=== PATIENT | male | born 1955 | race Caucasian/White ===

== ENCOUNTER 2021-07-25 15:10 | Emergency (ER) | payer MEDICAID, SELFPAY ==
[2021-07-25 15:15] VITALS: BP 134/85; PULSE 86; RESP 18; TEMP 36.9; O2SAT 97; BMI 19.8
--- NOTE | 2021-07-25 16:24 | HMH.EDGENADL ---
ED Disposition Clinical Impression: Fall on stairs Qualifiers: Encounter type: initial encounter Qualified Code(s): W10.9XXA - Fall (on) (from) unspecified stairs and steps, initial encounter Back contusion Qualifiers: Encounter type: initial encounter Laterality: unspecified laterality Qualified Code(s): S20.229A - Contusion of unspecified back wall of thorax, initial encounter Disposition: Home, Self-Care Condition on Discharge: Good Instructions: How to Prevent Falls Additional Instructions: Follow-up with primary care provider for any further complaints or concerns. Referrals: Provider,Referral, [Primary Care Provider] - - Critical Care Critical Care Time: No Attestation: On 07/25/21, the high probability of a clinically significant, sudden or life threatening deterioration of the following system(s) required my full and direct attention, intervention and personal management. The time I documented below is in addition to time spent performing reported procedures but includes the following listed in this critical care notation. Medical Decision Making - Salo Inquiry Pt receiving controlled substance: No Vital Signs: 07/25/21 15:15 Temperature 98.4 F Temperature Source Oral Pulse Rate [Left Radial] 86 Respiratory Rate 18 Blood Pressure [Right Arm] 134/85 Blood Pressure Mean [Right Arm] 101 02 Sat by Pulse Oximetry 97 Medical Decision Narrative: Patient declines any further care, wants to be discharged. He does not appear to have any significant injuries and I feel he can be discharged back to [facility]. General Adult HPI - General Chief complaint: Fall Stated complaint: Fall Time Seen by Provider: 07/25/21 16:24 Mode of Arrival: EMS Limitations: No Limitations Description of Symptoms (Recalled from ER Triage Doc. by RN): pt to ed per ems. ems states pt tripped down 2 steps and fell on his bottom. pt has no complaints on arrival. pt states nothing is wrong with me, they made me come. - History of Present Illness HPI narrative: Patient brought in by ambulance from [facility]. He says that he fell down the last couple of steps of some stairs and landed on his back. 911 call reported that he had severe back pain, but he says he feels fine. He had no complaints on EMS arrival. He says his back was a little sore afterwards but currently he says he is having no pain and he has no complaints and does not want anything done. Denies hitting his head or loss of consciousness. Denies neck pain. No abdominal pain or vomiting. He has been ambulatory in the emergency department without difficulty. - Related Data Home Medications Medication Instructions Recorded Confirmed Lactobacillus acidoph-L.bulgaricus 1 tab PO DAILY tab 01/18/18 12/19/19 1 million cell chewable tablet No Known Home Medications 01/18/18 12/19/19 carvedilol 3.125 mg tablet 3.125 mg PO BID 01/18/18 12/19/19 cyanocobalamin (vitamin B-12) 1,000 mcg PO DAILY 01/18/18 12/19/19 1,000 mcg capsule famotidine 20 mg tablet 20 mg PO DAILY 01/18/18 12/19/19 folic acid 1 mg tablet 1 mg PO DAILY 01/18/18 12/19/19 ibuprofen 600 mg tablet 600 mg PO QID PRN 01/18/18 12/19/19 levetiracetam 750 mg tablet 750 mg PO BID 01/18/18 12/19/19 lisinopril 20 mg tablet 20 mg PO DAILY 01/18/18 12/19/19 melatonin 5 mg capsule 5 mg PO cap 01/18/18 12/19/19 oxcarbazepine 600 mg tablet 600 mg PO BID 01/18/18 12/19/19 pyridoxine (vitamin B6) 50 mg 50 mg PO DAILY 01/18/18 12/19/19 tablet sennosides 8.6 mg tablet 8.6 mg PO BID PRN 01/18/18 12/19/19 sertraline 50 mg tablet 50 mg PO DAILY 01/18/18 12/19/19 trazodone 50 mg tablet 50 mg PO DAILY 01/18/18 12/19/19 Allergies Allergy/AdvReac Type Severity Reaction Status Date / Time No Known Allergies Allergy Verified 12/19/19 10:14 [facility] History - Hepatitis A Screen Attestation statement:: This patient has been screened for Hepatitis A risk factors. I have reviewed the patie
--- NOTE | 2021-07-25 16:36 | PC.NURSE ---
attempted to call quang lazo x5 for discharge
--- NOTE | 2021-07-25 16:47 | PC.NURSE ---
pt sitting in hallway in recliner
[2021-07-25 17:41] VITALS: BP 131/82; PULSE 84; RESP 17; TEMP 36.9; O2SAT 98
== END 2021-07-25 17:43 | disposition home or self-care (01) ==
PROVIDERS: Emergency Provider Emergency Medicine
DX: S20.229A Contusion of unspecified back wall of thorax, initial encounter (principal); W10.9XXA Fall (on) (from) unspecified stairs and steps, initial encounter
CPT/HCPCS: 99282

== ENCOUNTER 2021-08-19 15:08 | Inpatient (IN) | payer MEDICAID, SELFPAY ==
[2021-08-19 15:09] VITALS: BP 157/76; PULSE 84; RESP 16; TEMP 36.6; O2SAT 98; BMI 20.1
--- NOTE | 2021-08-19 15:13 | XR_ITS ---
FINAL REPORT CLINICAL HISTORY: weakness, altered mental status, fall FINDINGS: The heart size is normal. The mediastinum is normal. There is no focal infiltrate or edema. There are no pleural effusions. There is no pneumothorax. There is no osseous abnormality. IMPRESSION: No acute cardiopulmonary process Reviewed, Interpreted and Dictated by Donavan Marroquin III, MD Transcribed by Tacos Mancilla Authenticated and [facility]
--- NOTE | 2021-08-19 15:22 | HMH.EDGENADL ---
ED Disposition Clinical Impression: Metabolic encephalopathy, Failure to thrive Disposition: Admitted As Inpatient Condition on Discharge: Good - Critical Care Critical Care Time: No Attestation: On 08/19/21, the high probability of a clinically significant, sudden or life threatening deterioration of the following system(s) required my full and direct attention, intervention and personal management. The time I documented below is in addition to time spent performing reported procedures but includes the following listed in this critical care notation. Medical Decision Making - Medical Records Medical records reviewed: Yes: I reviewed the patient's medical records. - Salo Inquiry Pt receiving controlled substance: No Vital Signs: 08/19/21 15:09 08/19/21 15:30 Temperature 98 F Temperature Source Oral Pulse Rate 79 Pulse Rate [Radial] 84 Respiratory Rate 16 19 Blood Pressure 130/76 Blood Pressure [Right Arm] 157/76 H Blood Pressure Mean 95 Blood Pressure Mean [Right Arm] 103 Blood Pressure Position [Right Arm] Sitting 02 Sat by Pulse Oximetry 98 97 Oxygen Delivery Method Room Air - Lab Data Lab results reviewed: Yes: I reviewed the patient's lab results. Lab Results 08/19/21 15:05: WBC 18.7 H, RBC 4.70, Hgb 15.1, Hct 43.8, MCV 93.2, MCH 32.1 H, MCHC 34.5, RDW 15.3, Plt Count 134 L, MPV 9.3, Neut % (Auto) 89.5 H, Lymph % (Auto) 3.2 L, Harding % (Auto) 5.6, Eos % (Auto) 1.3, Baso % (Auto) 0.4, Neut # (Auto) 16.8 H, Lymph # (Auto) 0.6 L, Harding # (Auto) 1.1 H, Eos # (Auto) 0.3, Baso # (Auto) 0.1, Total Counted 100, Neutrophils % (Manual) 89 H, Lymphocytes % (Manual) 5 L, Monocytes % (Manual) 6, Platelet Estimate Moderate decrease, Ovalocytes 2+ 08/19/21 15:05: Sodium 132 L, Potassium 3.5, Chloride 102, Carbon Dioxide 24, Anion Gap 9.5, BUN 16, Creatinine 0.90, Estimated Creat Clear 76, Estimated GFR 85, Est GFR ( Amer) 103, Glucose 108 H, Calcium 9.0, Total Bilirubin 0.8, AST 31, ALT 15, Alkaline Phosphatase 100, Total Creatine Kinase 455 H, Troponin I 0.04 H, Total Protein 7.2, Albumin 4.1, Globulin 3.1, Albumin/Globulin Ratio 1.3 08/19/21 15:05: Magnesium 1.6 08/19/21 16:00: SARS-CoV-2 (PCR) Not detected, Influenza A Untype (PCR) Not detected, Influenza Type B (PCR) Not detected Result diagrams: 08/19/21 15:05 08/19/21 15:05 Orders (Tests/Meds): ED MEDICATIONS Discontinued Medications Generic Name Dose Route Start Last Admin Trade Name Freq PRN Reason Stop Dose Admin Haloperidol Lactate 5 mg 08/19/21 17:43 08/19/21 17:47 Haloperidol Lactate 5 Mg/Ml Vial IM 08/19/21 17:44 5 mg ONCE ONE Administration - ECG Data Tracing #1 I reviewed this ECG and interpreted as documented below: NSR @ 76 with occaisoinal PAC's normal axis AK 76 QRS 94 QTc [address]/T wave changes General Adult HPI - General Chief complaint: Fall Stated complaint: weakness Time Seen by Provider: 08/19/21 15:23 Mode of Arrival: EMS Source of Information: Patient, EMS Limitations: Altered Mental Status Description of Symptoms (Recalled from ER Triage Doc. by RN): to ed per squad pt resident dong sent to ed due to hx of multiple falls, generalized weakness, weightloss decline in ability to care for self progressively getting worse over the last few months. pt disheveled, incontinent of urine, smells of urine. pt denies any c/o at present - History of Present Illness HPI narrative: 65 yo/M, history somewhat limited. From [facility] per EMS, has had functional decline, weight loss, inability to care for self, has been incontinent of feces and urine, had significant recent weight loss. Pt denies fever, denies any pain, diarrhea, shortness of breath or other symptoms. - Related Data Home Medications Medication Instructions Recorded Confirmed Lactobacillus acidoph-L.bulgaricus 1 tab PO DAILY tab 01/18/18 12/19/19 1 million cell chewable tablet No Known Home Medicati
--- NOTE | 2021-08-19 15:25 | ECG_ITS ---
APPROVED REPORT Exam: Resting ECG HR:76 bpm ECG Measurements Heart Rate 76 AXES HI 165 P 78 QRSd 94 QRS 80 QT 385 T 37 QTc 416 Conclusion SINUS RHYTHM WITH OCCASIONAL SUPRAVENTRICULAR PREMATURE COMPLEXES LEFT VENTRICULAR HYPERTROPHY AND ST-T CHANGE [VOLTAGE CRITERIA PLUS ST/T ABNORMALITY] ABNORMAL ECG UNCONFIRMED REPORT Electronically signed by : Ford Latif MD 08/20/2021 15:37:11
[2021-08-19 15:30] VITALS: BP 130/76; PULSE 79; RESP 19; O2SAT 97
--- NOTE | 2021-08-19 15:37 | CT_ITS ---
FINAL REPORT CLINICAL HISTORY: altered mental status, fall FINDINGS: Axial images of the head were obtained without contrast. Coronal reformatted images were also obtained. This study was performed with techniques to keep radiation doses as low as reasonably achievable (ALARA). Individualized dose reduction techniques using automated exposure control or adjustment of mA and/or kV according to the patient's size were employed. Postoperative change at the right base the brain causes streak artifact. There is age-appropriate atrophy. Periventricular low-attenuation areas are seen consistent with mild chronic ischemic changes. There are areas of bilateral encephalomalacia. There is no evidence of intracranial hemorrhage or mass. There is mild ventriculomegaly. There is no evidence of acute infarct. There is no evidence of shift of the midline structures. Postoperative changes are seen from right craniotomy. IMPRESSION: Postoperative changes. Atrophy and mild periventricular chronic ischemic changes. No acute intracranial abnormality identified. Reviewed, Interpreted and Dictated by Donavan Marroquin III, MD Transcribed by Tacos Mancilla Authenticated and [facility]
[2021-08-19 15:51] LABS: Basophils # 0.1 K/mm3 (0-0.2); Basophils % 0.4 % (0.1-2.0); Chloride 102 mmol/L (98-107); Eosinophils # 0.3 K/mm3 (0.0-0.4); Eosinophils % 1.3 % (0.1-12.0); Hematocrit 43.8 % (42.0-52.0); Hemoglobin 15.1 g/dL (14.1-18.0); Lymphocytes # 0.6 K/mm3 (0.7-4.5); Lymphocytes % 3.2 % (10-50); Mean Corpuscular HGB Conc 34.5 g/dL (31.8-35.4); Mean Corpuscular Hemoglobin 32.1 pg (27.0-31.2); Mean Corpuscular Volume 93.2 fl (80-94); Mean Platelet Volume 9.3 fl (7.4-10.4); Monocytes # 1.1 K/mm3 (0.1-1.0); Monocytes % 5.6 % (1.7-9.3); Neutrophils # 16.8 K/mm3 (1.8-7.8); Neutrophils % 89.5 % (37.0-80.0); Platelet Count 134 K/mm3 (142-424); Potassium 3.5 mmoL/L (3.5-5.1); Red Cell Distribution Width 15.3 % (11.5-17.5); Sodium 132 mmol/L (136-145); White Blood Count 18.7 K/mm3 (4.8-10.8)
[2021-08-19 15:53] LABS: Alanine Aminotransferase 15 U/L (12-78); Aspartate Amino Transferase 31 U/L (17-59); Blood Urea Nitrogen 16 mg/dl (9-20); Creatinine Clearance Estimated 76 mL/min (50-200); Estimated Glomerular Filt Rate 85 ml/min (>60); GFR (African American) 103 ML/MIN (>60); Magnesium 1.6 mg/dl (1.6-2.3)
[2021-08-19 15:54] LABS: Albumin Level 4.1 g/dl (3.5-5.0); Albumin/Globulin Ratio 1.3 (1.1-1.8); Alkaline Phosphatase 100 U/L (38-126); Anion Gap 9.5 mEq/L (5-15); Bilirubin,Total 0.8 mg/dl (0.2-1.3); Carbon Dioxide 24 mmol/L (22.0-30.0); Creatine Kinase 455 U/L (55-170); Globulin 3.1 g/dL (1.3-3.2); Glucose 108 mg/dl (74-100); Total Protein,Serum 7.2 g/dl (6.3-8.2)
[2021-08-19 15:56] LABS: MANUAL DIFFERENTIAL MANUAL DIFFERENTIAL (MANUAL DIFF)
[2021-08-19 16:06] LABS: Troponin I 0.04 ng/ml (0.00-0.034)
[2021-08-19 16:28] LABS: Coronavirus 19, PCR Not Detected (NotDetected); Influenza A, PCR Not Detected (NotDetected); Influenza B, PCR Not Detected (NotDetected)
[2021-08-19 16:32] LABS: Lymphocytes % 5 % (10-50); Monocytes % 6 % (2-9); Neutrophils % 89 % (42-76); Total Cells Counted 100
[2021-08-19 16:34] LABS: Ovalocytes 2+; Platelet Estimate Moderate Decrease
--- NOTE | 2021-08-19 16:43 | PC.NURSE ---
Called Dietary for a regular food tray to ED Room 9; spoke to Amelia
--- NOTE | 2021-08-19 17:00 | PC.NURSE ---
diet tray given
--- NOTE | 2021-08-19 17:04 | PC.NURSE ---
pt sittting up on side of the bed eating his supper tray at this time
--- NOTE | 2021-08-19 17:23 | PC.NURSE ---
Spoke with Coby in Care management regarding patient admission.
--- NOTE | 2021-08-19 17:30 | PC.NURSE ---
pt up out of bed pt with unsteady gait
--- NOTE | 2021-08-19 17:48 | PC.NURSE ---
PT HAS BECOME VERY COMBATIVE AT TIMES WILL NOT STAY IN BED URINATING ALL OVER THE FLOOR . HALDOL 5 MG IM GIVEN CALLED HOUSE REQUESTING SOMEONE TO COME SIT ONE ON ONE
--- NOTE | 2021-08-19 17:57 | PC.NURSE ---
report called to floor
--- NOTE | 2021-08-19 18:34 | PC.NURSE ---
Pt arrived to the floor at this time
[2021-08-19 18:50] VITALS: BP 124/74; PULSE 78; RESP 16; TEMP 36.6; O2SAT 98
[2021-08-19 18:51] VITALS: BP 148/85; PULSE 87; RESP 16; TEMP 36.4; O2SAT 99; BMI 14.2
[2021-08-19 18:58] LABS: Microscopic, Urine URINE MICROSCOPIC (MICROSCOPIC)
[2021-08-19 20:00] VITALS: BP 144/80; PULSE 82; RESP 16; TEMP 36.9; O2SAT 96
[2021-08-19 20:11] LABS: Bilirubin,Urine Negative (Negative); Blood, Urine 2+ (Negative); Color,Urine YELLOW (Yellow); Glucose,Urine (UA) Negative (Negative); Ketones,Urine Negative (Negative); Leukocyte Esterase,Urine 2+ (Negative); Nitrate,Urine POSITIVE (Negative); Protein,Urine 2+ (Negative); Urobilinogen,Urine 0.2 EU/dl (0.2)
[2021-08-19 20:14] LABS: Appearance,Urine Slightly Cloudy (Clear)
[2021-08-19 20:41] LABS: Bacteria,Urine 2+ /lpf; Squamous Epithelial Cell,Urine Occasional #/hpf (0-5); WBC,Urine 20-50 #/hpf (0-3)
[2021-08-20] VITALS: BP 83/56; PULSE 74; RESP 16; TEMP 37; O2SAT 95
--- NOTE | 2021-08-20 00:07 | PC.NURSE ---
Blood pressure was 83/56 with a map of 67 the nurse was notified
[2021-08-20 00:17] VITALS: BP 90/52
--- NOTE | 2021-08-20 01:05 | PC.NURSE ---
patient BP systolic dropped > 40; provider validation manager notified and gave v.o. for LR 1L Bolus x 1 and LR 125mg/hr for maintenance. IV started in DENISE 20g.
[2021-08-20 04:00] VITALS: BP 137/76; PULSE 65; RESP 18; TEMP 36.8; O2SAT 92
[2021-08-20 05:00] VITALS: BMI 15.4
[2021-08-20 06:50] LABS: Basophils # 0.1 K/mm3 (0-0.2); Basophils % 0.3 % (0.1-2.0); Eosinophils # 0.3 K/mm3 (0.0-0.4); Eosinophils % 1.3 % (0.1-12.0); Hematocrit 40.3 % (42.0-52.0); Lymphocytes # 0.6 K/mm3 (0.7-4.5); Mean Corpuscular HGB Conc 34.7 g/dL (31.8-35.4); Mean Corpuscular Hemoglobin 31.8 pg (27.0-31.2); Mean Corpuscular Volume 91.7 fl (80-94); Monocytes # 0.9 K/mm3 (0.1-1.0); Monocytes % 4.8 % (1.7-9.3); Neutrophils # 17.8 K/mm3 (1.8-7.8); Neutrophils % 90.6 % (37.0-80.0); Platelet Count 116 K/mm3 (142-424); Red Cell Distribution Width 15.4 % (11.5-17.5); White Blood Count 19.7 K/mm3 (4.8-10.8)
[2021-08-20 07:00] LABS: MANUAL DIFFERENTIAL MANUAL DIFFERENTIAL (MANUAL DIFF)
[2021-08-20 07:01] LABS: Chloride 100 mmol/L (98-107); Potassium 3.5 mmoL/L (3.5-5.1); Sodium 129 mmol/L (136-145)
[2021-08-20 07:04] LABS: Anion Gap 10.5 mEq/L (5-15); Blood Urea Nitrogen 17 mg/dl (9-20); Calcium 8.6 mg/dl (8.4-10.2); Carbon Dioxide 22 mmol/L (22.0-30.0); Creatinine Clearance Estimated 53 mL/min (50-200); Estimated Glomerular Filt Rate 114 ml/min (>60); GFR (African American) 138 ML/MIN (>60); Glucose 104 mg/dl (74-100)
--- NOTE | 2021-08-20 07:09 | P.CONPHA_ITS ---
[facility] Pharmacy VTE Monitoring - Patient Demographics Admission date: 08/19/21 Report Date: 08/20/21 Time: 07:09 Allergies/Adverse Reactions: Patient Allergies No Known Allergies Allergy (Verified 12/19/19 10:14) Height: 1.8 m Weight: 49.952 kg Patient Problems: Current Active Problems Metabolic encephalopathy (Acute) Failure to thrive (Acute) - VTE Risk Labs: VTE Related Lab Results Hgb 14.0 g/dL (14.1-18.0) L 08/20/21 06:30 Hct 40.3 % (42.0-52.0) L 08/20/21 06:30 Plt Count 116 K/mm3 (142-424) L 08/20/21 06:30 BUN 17 mg/dl (9-20) 08/20/21 06:30 Creatinine 0.70 mg/dl (0.66-1.25) D 08/20/21 06:30 Estimated Creat Clear 53 mL/min (50-200) 08/20/21 06:30 - Prophylaxis VTE Prophylaxis Ordered?: Yes Types of VTE Prophylaxis: TEDS Knee High Location of Applied Device: Bilateral Lower Extremeties
[2021-08-20 07:30] LABS: Lymphocytes % 4 % (10-50); Monocytes % 2 % (2-9); Neutrophils % 94 % (42-76); RBC Morphology Normal; Total Cells Counted 100
[2021-08-20 07:31] LABS: Platelet Estimate Slight Decrease
--- NOTE | 2021-08-20 07:34 | HMH.PHAINT ---
verified home medication list using MAR from [facility]
[2021-08-20 07:45] VITALS: BP 152/73; PULSE 82; RESP 16; TEMP 36.6; O2SAT 99
--- NOTE | 2021-08-20 09:58 | HMH.HP ---
*Admission Date: 08/19/21 *Chief complaint: Weakness *History of present illness: 65-year-old male patient to [facility] emergency department per EMS for generalized weakness, weight loss, decline in ability to care for self, and multiple falls over the last several months with significant weight loss. The emergency department patient was disheveled, incontinent of bowel and bladder and denied fever/chills/body aches, nausea/vomiting/diarrhea, or any pain or other symptoms UA revealed 2+ leukocytes, 2+ bacteria and positive nitrates Head CT revealed Postoperative changes. Atrophy and mild periventricular chronic ischemic changes. No acute intracranial abnormality identified. Chest x-ray no acute findings [facility] History I have reviewed the patient's past medical history: Yes Medical History: Reports:: Aneurysm Denies:: Cancer, Diabetes Mellitus Type 1, Diabetes Mellitus Type 2, MRSA *Have you ever received a pneumonia vaccine?: Yes *Have you received a flu vaccine this season?: Yes Other Surgeries: Yes: No Previous Surgery Amputation: No Fractures: No - *Social History Smoking Status: Current every day smoker Tobacco Type: cigarettes # Packs/Day (cigarettes): 1 Alcohol Intake: never *Occupational Status:: disabled Housing: assisted living facility *Travel in the last 8 weeks: None Family Hx:: Unable to obtain Review of Systems - Review of Systems Review of systems:: unable to obtain Meds Home Medications Medication Instructions Recorded Confirmed Type Lactobacillus acidoph-L.bulgaricus 1 tab PO DAILY tab 01/18/18 08/19/21 History 1 million cell chewable tablet carvedilol 3.125 mg tablet 3.125 mg PO BID 01/18/18 08/19/21 History famotidine 20 mg tablet 20 mg PO DAILY 01/18/18 08/19/21 History folic acid 1 mg tablet 1 mg PO DAILY 01/18/18 08/19/21 History ibuprofen 600 mg tablet 600 mg PO QID PRN 01/18/18 08/19/21 History levetiracetam 750 mg tablet 750 mg PO BID 01/18/18 08/19/21 History melatonin 5 mg capsule 5 mg PO HS cap 01/18/18 08/19/21 History oxcarbazepine 600 mg tablet 600 mg PO BID 01/18/18 08/19/21 History sennosides 8.6 mg tablet 8.6 mg PO BID PRN 01/18/18 08/19/21 History trazodone 50 mg tablet 50 mg PO DAILY 01/18/18 08/19/21 History Amlodipine Besylate 1 tab PO HS 08/19/21 08/19/21 History Sertraline HCl 100 mg PO DAILY 08/20/21 08/20/21 History lisinopriL [Lisinopril] 40 mg PO DAILY 08/20/21 08/20/21 History Allergies Allergy/AdvReac Type Severity Reaction Status Date / Time No Known Allergies Allergy Verified 12/19/19 10:14 Exam Vital signs and Labs for Last 24 Hours: Temp Pulse Resp BP Pulse Ox 97.8 F 82 16 152/73 H 99 08/20/21 07:45 08/20/21 07:45 08/20/21 07:45 08/20/21 07:45 08/20/21 07:45 Laboratory Results - last 24 hr 08/19/21 15:05: WBC 18.7 H, RBC 4.70, Hgb 15.1, Hct 43.8, MCV 93.2, MCH 32.1 H, MCHC 34.5, RDW 15.3, Plt Count 134 L, MPV 9.3, Neut % (Auto) 89.5 H, Lymph % (Auto) 3.2 L, Angelina % (Auto) 5.6, Eos % (Auto) 1.3, Baso % (Auto) 0.4, Neut # (Auto) 16.8 H, Lymph # (Auto) 0.6 L, Angelina # (Auto) 1.1 H, Eos # (Auto) 0.3, Baso # (Auto) 0.1, Total Counted 100, Neutrophils % (Manual) 89 H, Lymphocytes % (Manual) 5 L, Monocytes % (Manual) 6, Platelet Estimate Moderate decrease, Ovalocytes 2+ 08/19/21 15:05: Sodium 132 L, Potassium 3.5, Chloride 102, Carbon Dioxide 24, Anion Gap 9.5, BUN 16, Creatinine 0.90, Estimated Creat Clear 76, Estimated GFR 85, Est GFR ( Amer) 103, Glucose 108 H, Calcium 9.0, Total Bilirubin 0.8, AST 31, ALT 15, Alkaline Phosphatase 100, Total Creatine Kinase 455 H, Troponin I 0.04 H, Total Protein 7.2, Albumin 4.1, Globulin 3.1, Albumin/Globulin Ratio 1.3 08/19/21 15:05: Magnesium 1.6 08/19/21 16:00: SARS-CoV-2 (PCR) Not detected, Influenza A Untype (PCR) Not detected, Influenza Type B (PCR) Not detected 08/19/21 18:51: Urine Color Yellow, Urine Appearance Slightly cloudy, Urine pH 8.0
--- NOTE | 2021-08-20 10:05 | SW/DCPLANNER ---
Addendum entered by [facility] 08/25/21 10:01: I have contacted patient's Guardian to inform her that this patient will discharge to [facility] today. Addendum entered by [facility] 08/25/21 09:51: This patient will discharge to [facility] today. Repeat COVID swab is negative. Addendum entered by [facility] 08/24/21 12:53: Janeth Reyna has stated that she can accept this patient tomorrow. Janeth has requested a COVID swab prior to discharge. I will update patient' guardian. Addendum entered by [facility] 08/24/21 10:41: Janeth painting/ [facility] and Jesica painting/ [facility] are currently reviewing patient information. Addendum entered by [facility] 08/23/21 14:46: [facility] is not able to accept this patient. I am currently waiting to hear back from: Isidro Miller and [facility]. [facility] has denied this patient and Lis painting/ [facility]anc[facility] stated that she does not have any male beds available at this time. Addendum entered by [facility] 08/23/21 12:41: [facility]/ [facility] has denied this patient at this time. Addendum entered by [facility] 12:05: [facility] patient at this time. Addendum entered by [facility] 08/23/21 11:59: Patient information has been faxed to Jesica painting/ [facility]. Addendum entered by [facility] 08/23/21 10:35: Janeth Reyna and Priyanka Mancilla are currently reviewing patient information at this time. Addendum entered by [facility] 08/20/21 10:35: I called and spoke with patient's Guardian (Bere) regarding placement. Bere is in agreement with faxing referral to facilities. I will fax patient information to: Isidro Miller, [facility], [facility] and [facility]. Lis painting/ [facility]ancilla and Jesica painting/ [facility] does not have a male bed available at this time. Original Note: This patient currently resides at [facility]. I called and spoke with Olesya at [facility]: patient has been having falls for the past month, was at [facility] on 07/25/21 for a fall, does not have any home health and placement was not initiated. Olesya did inform me that patient does have a State Guardian and will get the information to me. PT/OT has recommended placement for this patient. I will contact patient's Guardian once I receive information from Olesya.
--- NOTE | 2021-08-20 10:36 | HMH.PTEV ---
Physical Therapy Evaluation Rehab PT IP Evaluation Start: 08/20/21 09:59 Freq: ONCE Status: Active Protocol: Document 08/20/21 10:27 MARISSA (Rec: 08/20/21 10:36 MARISSA [id number]) Subjective/History History History Patient is a 65 year old male admitted to [facility] 08/19/21 secondary to failure to thrive and encephalopathy. Patient was previously living in an assisted living facility. Patient claims to be independenet with ambulation and all ADL's. Subjective Subjective Patient appeared confused upon entry. Min assist x 1 for bed mobility to achieve EOB. MIn assist for sit to stand transfer and ambulation. Patient oriented to person and birthday, but not to place. Rehab PT IP Eval Objective Appearance Patient Behavior Confused Patient Orientation Person,Place Difficulty following instructions mild Speech Pattern Delayed,Mumbled Ambulation Patient Able to Ambulate Yes Balance Ability to Arise Able, uses arms to help Sitting Balance Leans or slides in chair Standing Balance Unsteady Dynamic Sitting Balance Ability Fair Dynamic Standing Balance Ability Fair Transfers Bed Transfer Ability Minimal x 1 (25% assist) Sit to Stand Bed Transfer Ability Minimal x 1 (25% assist) ROM All Extremities PT ROM Status WFL MMT All Extremities PT MMT ABN Abnormal MMT Grade 3 Rehab PT IP prob,goals,plan Problems Date of Evaluation: 08/20/21 PT IP Problems Bed Mobility,Transfers,Gait, Balance,Self care,Safety Rehab Potential Rehab Potential Fair Plan PT Intervention Plan Bed Mobility,Transfers,Gait, Balance,Self care,Safety, Therapeutic Exercise PT Plan Frequency BID Duration LOS Discharge Goals Bed Transfer Ability Supervision/Stand by Sit to Stand Chair Transfer Ability Supervision/Stand by Ambulation Assistive Device None Ambulation Distance (feet) 50 Discharge Plan PT Discharge Plan PT suggest to discharge to SNF for continued rehab services to address concerns about safety wi
--- NOTE | 2021-08-20 10:47 | HMH.OTEV ---
OT Inpatient Evaluation Rehab OT IP Evaluation Start: 08/20/21 09:59 Freq: ONCE Status: Complete Protocol: Document 08/20/21 10:39 [facility] (Rec: 08/20/21 10:47 [facility] [id number]) Rehab OT IP Assessment Subjective History Pt oriented x 2 on arrival. Pt not oriented to place. Pt was admitted via ED on 08/19/21 due to Metabolic encephalopathy and failure to thrive. Per report, pt was living at [facility] prior to being admitted to the hospital . Pt appears to be slightly disoriented on arrival. Pt claims prior to being in the hospital he was independent with all ADLs such as dressing , feeding, and bathing. Pt also claims he did not use a walker or cane during ambulation. Subjective I'm at [facility]. Pt required mod verbal cueing for instruction and min assist to complete bed mobility and go from supine to sitting at eob. Pt was unable to don socks while sitting at eob. Pt demonstrated poor dynamic sitting balance with a posterior lean. Pt was dependent upon therapist to complete lower body dressing. Pt stood from eob with min assist. Pt engaged in functional transfer to bathroom with min assist and max verbal cues for instruction and safety during transfer. Pt attempted urination while standing. Pt required max verbal cues for appropriate positioning while trying to urinate. Pt then transferred back to bed with min assist. Pt sat down at eob with min assist. Pt completed bed mobility to go from sitting to supine with cga. Pt was left with call
[2021-08-20 13:34] VITALS: BMI 15.4
[2021-08-20 16:00] VITALS: BP 117/75; PULSE 78; RESP 16; TEMP 36.8; O2SAT 97
--- NOTE | 2021-08-20 18:50 | PC.NURSE ---
Pt has done ok this shift. pt has not required any PRN medications this shift for agitation. Seizure pads added to bed d/t pt's hx of seizures. Pt has only been oriented to himself this shift. Pt has been a max x2 assist getting back and forth to chair and bed. Pt has experienced urinary urgency this shift. Pt is able to urinate, just small amounts. Pt abd is soft and non-tender. Bladder scan performed and showed <50mL this shift. Bed alarm remains on for safety. No other acute changes, will monitor.
[2021-08-20 20:00] VITALS: BP 126/70; PULSE 74; RESP 16; TEMP 37.1; O2SAT 98
[2021-08-21 04:00] VITALS: BP 107/65; PULSE 80; RESP 16; TEMP 36.8; O2SAT 97
[2021-08-21 05:00] VITALS: BMI 15.4
[2021-08-21 08:00] VITALS: BP 108/60; PULSE 79; RESP 16; TEMP 36.7; O2SAT 99
--- NOTE | 2021-08-21 10:17 | HMH.ACPN2 ---
Internal Medicine - PN: Subj *Date: 08/21/21 *Time: 10:24 Interval history: looks better and more alert - labs pending - has gram neg janie in urine Exam Vital signs and Labs for Last 24 Hours: Temp Pulse Resp BP Pulse Ox 98.0 F 79 16 108/60 L 99 08/21/21 08:00 08/21/21 08:00 08/21/21 08:00 08/21/21 08:00 08/21/21 08:00 Laboratory Results - last 24 hr 08/19/21 18:51: Urine Color Yellow, Urine Appearance Slightly cloudy, Urine pH 8.0, Ur Specific [place] 1.020, Urine Protein 2+, Urine Glucose (UA) Negative, Urine Ketones Negative, Urine Blood 2+, Urine Nitrate Positive, Urine Bilirubin Negative, Urine Urobilinogen 0.2, Ur Leukocyte Esterase 2+ A, Urine WBC 20-50, Ur Squamous Epith Cells Occasional, Urine Bacteria 2+ I & O for Last 24 hours: Intake & Output 08/18/21 08/19/21 08/20/21 08/21/21 11:59 11:59 11:59 11:59 Intake Total 480 / 480 4712 / 4712 Balance 480 / 480 4712 / 4712 Weight 110 lb 2 oz 110 lb 3.698 oz Microbiology Reports for the Last 24 Hours: Microbiology 08/19/21 18:51 Urine,Clean Catch Urine Culture - Preliminary Gram Negative Rods - Constitutional no acute distress, thin, chronically ill appearing - *Routine HEENT Exam Head: Present: normocephalic Eye: Present: EOMI, PERRL ENT: Present: mucous membranes dry - *Routine Neck Exam Absent: JVD - *Routine Respiratory Exam Present: decreased breath sounds - *Routine Cardiovascular Exam Present: RRR - *Routine Abdominal Exam Present: soft - *Routine Extremities Exam Absent: edema - *Routine Skin Exam Present: intact - *Routine Neurological Exam Present: alert, CN II-XII intact - Routine Psychiatric Exam Present: unable to assess Assessment and Plan (1) UTI (urinary tract infection) Status: Acute Category: Medical Code(s): N39.0 - Urinary tract infection, site not specified (2) Failure to thrive Status: Acute Category: Medical (3) Metabolic encephalopathy Status: Acute Category: Medical Code(s): G93.41 - Metabolic encephalopathy (4) UTI (urinary tract infection) Status: Acute Qualifiers: Urinary tract infection type: site unspecified Hematuria presence: without hematuria Qualified Code(s): N39.0 - Urinary tract infection, site not specified Category: Medical Code(s): N39.0 - Urinary tract infection, site not specified
[2021-08-21 11:28] LABS: Basophils % 0.1 % (0.1-2.0); Eosinophils # 0.1 K/mm3 (0.0-0.4); Eosinophils % 0.7 % (0.1-12.0); Hematocrit 37.6 % (42.0-52.0); Hemoglobin 12.8 g/dL (14.1-18.0); Lymphocytes # 0.5 K/mm3 (0.7-4.5); Mean Corpuscular HGB Conc 34.1 g/dL (31.8-35.4); Mean Corpuscular Hemoglobin 31.9 pg (27.0-31.2); Mean Corpuscular Volume 93.6 fl (80-94); Mean Platelet Volume 11.4 fl (7.4-10.4); Monocytes # 0.7 K/mm3 (0.1-1.0); Monocytes % 5.3 % (1.7-9.3); Neutrophils # 11.4 K/mm3 (1.8-7.8); Platelet Count 92 K/mm3 (142-424); Red Blood Count 4.02 M/mm3 (4.60-6.20); Red Cell Distribution Width 15.5 % (11.5-17.5); White Blood Count 12.7 K/mm3 (4.8-10.8)
[2021-08-21 11:48] LABS: Sodium 124 mmol/L (136-145)
[2021-08-21 11:49] LABS: Chloride 98 mmol/L (98-107); Potassium 3.3 mmoL/L (3.5-5.1)
[2021-08-21 11:52] LABS: Anion Gap 8.3 mEq/L (5-15); Blood Urea Nitrogen 15 mg/dl (9-20); Calcium 8.2 mg/dl (8.4-10.2); Carbon Dioxide 21 mmol/L (22.0-30.0); Creatinine Clearance Estimated 53 mL/min (50-200); Estimated Glomerular Filt Rate 136 ml/min (>60); GFR (African American) 165 ML/MIN (>60); Glucose 100 mg/dl (74-100)
[2021-08-21 12:01] LABS: MANUAL DIFFERENTIAL MANUAL DIFFERENTIAL (MANUAL DIFF)
[2021-08-21 15:04] VITALS: BP 117/59; PULSE 69; RESP 16; TEMP 36.9; O2SAT 98
[2021-08-21 15:35] LABS: Anisocytosis 1+; Lymphocytes % 13 % (10-50); Monocytes % 16 % (2-9); Neutrophils % 71 % (42-76); Platelet Estimate Normal; Total Cells Counted 100
--- NOTE | 2021-08-21 16:48 | PC.NURSE ---
Addendum entered by Bria Peres RN 08/21/21 17:32: Pt changed to soft diet d/t having no teeth and difficulty chewing Original Note: Pt has done well this shift. Pt received a shower this shift by this RN and Lucy Zhou RN. pt tolerated well and was a x1 assistance with ambulation. Pt has slept majority of this shift and has turned himself independently. Pt has been continent of urine this shift and has used the urinal independently. No other acute changes or complaints, will monitor.
[2021-08-21 20:00] VITALS: BP 111/63; PULSE 68; RESP 18; TEMP 36.6; O2SAT 94
[2021-08-22 04:00] VITALS: BP 161/59; PULSE 58; RESP 18; TEMP 36.7; O2SAT 93
[2021-08-22 04:50] VITALS: BMI 17.0
--- NOTE | 2021-08-22 05:20 | PC.NURSE ---
pt has rested well this this shift, no changes from previous assessment, pt alert to name and birthday but confused to place and time, VSS, no other issues noted,
[2021-08-22 08:00] VITALS: BP 141/72; PULSE 58; RESP 17; TEMP 36.7; O2SAT 92
[2021-08-22 11:32] LABS: Basophils % 0.4 % (0.1-2.0); Eosinophils % 0.3 % (0.1-12.0); Hematocrit 37.4 % (42.0-52.0); Lymphocytes # 0.4 K/mm3 (0.7-4.5); Lymphocytes % 6.4 % (10-50); Mean Corpuscular HGB Conc 34.6 g/dL (31.8-35.4); Mean Corpuscular Hemoglobin 31.9 pg (27.0-31.2); Mean Corpuscular Volume 92.2 fl (80-94); Mean Platelet Volume 10.4 fl (7.4-10.4); Monocytes # 0.4 K/mm3 (0.1-1.0); Monocytes % 6.2 % (1.7-9.3); Neutrophils % 86.7 % (37.0-80.0); Platelet Count 99 K/mm3 (142-424); Red Blood Count 4.06 M/mm3 (4.60-6.20); Red Cell Distribution Width 15.4 % (11.5-17.5); White Blood Count 6.9 K/mm3 (4.8-10.8)
[2021-08-22 11:36] LABS: Chloride 103 mmol/L (98-107); Sodium 129 mmol/L (136-145)
[2021-08-22 11:38] LABS: Alanine Aminotransferase 23 U/L (12-78); Aspartate Amino Transferase 57 U/L (17-59); Blood Urea Nitrogen 11 mg/dl (9-20); Creatinine Clearance Estimated 59 mL/min (50-200); Estimated Glomerular Filt Rate 168 ml/min (>60); GFR (African American) 203 ML/MIN (>60)
[2021-08-22 11:39] LABS: Albumin Level 2.9 g/dl (3.5-5.0); Albumin/Globulin Ratio 1.1 (1.1-1.8); Alkaline Phosphatase 71 U/L (38-126); Anion Gap 4.1 mEq/L (5-15); Bilirubin,Total 0.6 mg/dl (0.2-1.3); Carbon Dioxide 25 mmol/L (22.0-30.0); Globulin 2.6 g/dL (1.3-3.2); Glucose 97 mg/dl (74-100); Potassium 3.1 mmoL/L (3.5-5.1); Total Protein,Serum 5.5 g/dl (6.3-8.2)
[2021-08-22 11:42] LABS: MANUAL DIFFERENTIAL MANUAL DIFFERENTIAL (MANUAL DIFF)
--- NOTE | 2021-08-22 12:15 | HMH.ACPN2 ---
Internal Medicine - PN: Subj *Date: 08/22/21 *Time: 12:15 Interval history: Patient is more alert this morning. Staff relays an uneventful night. His urine is growing gram-negative rods, he is on IV Levaquin. Final ID is pending He was admitted with marked failure to thrive. Sickle therapy notes are reviewed Exam Vital signs and Labs for Last 24 Hours: Temp Pulse Resp BP Pulse Ox 98.0 F 58 L 17 141/72 H 92 L 08/22/21 08:00 08/22/21 08:00 08/22/21 08:00 08/22/21 08:00 08/22/21 08:00 Laboratory Results - last 24 hr 08/21/21 10:37: Total Counted 100, Neutrophils % (Manual) 71, Lymphocytes % (Manual) 13, Monocytes % (Manual) 16 H, Platelet Estimate Normal, Anisocytosis 1+ 08/22/21 11:22: WBC 6.9 D, RBC 4.06 L, Hgb 13.0 L, Hct 37.4 L, MCV 92.2, MCH 31.9 H, MCHC 34.6, RDW 15.4, Plt Count 99 L, MPV 10.4, Neut % (Auto) 86.7 H, Lymph % (Auto) 6.4 L, [place] % (Auto) 6.2, Eos % (Auto) 0.3, Baso % (Auto) 0.4, Neut # (Auto) 6.0, Lymph # (Auto) 0.4 L, [place] # (Auto) 0.4, Eos # (Auto) 0.0, Baso # (Auto) 0.0 08/22/21 11:22: Sodium 129 L, Potassium 3.1 L, Chloride 103, Carbon Dioxide 25, Anion Gap 4.1 L, BUN 11 D, Creatinine 0.50 L, Estimated Creat Clear 59, Estimated GFR 168, Est GFR ( Amer) 203 D, Glucose 97, Calcium 8.0 L, Total Bilirubin 0.6, AST 57 D, ALT 23 D, Alkaline Phosphatase 71, Total Protein 5.5 L, Albumin 2.9 L, Globulin 2.6, Albumin/Globulin Ratio 1.1 I & O for Last 24 hours: Intake & Output 06/16/22 06/17/22 06/18/22 06/19/22 23:59 23:59 23:59 23:59 Intake Total 3357 / 3357 3643 / 3843 2116 Output Total 200 / 200 Balance 3357 / 3357 3443 / 3643 2116 Weight 102 lb 2 oz 110 lb 2.005 oz 110 lb 3.698 oz 122 lb - Constitutional cachectic, chronically ill appearing - *Routine HEENT Exam Head: Present: normocephalic Eye: Present: EOMI, PERRL ENT: Present: mucous membranes moist - *Routine Neck Exam Present: supple. Absent: lymphadenopathy - *Routine Respiratory Exam Present: CTA bilaterally - *Routine Cardiovascular Exam Present: RRR - *Routine Abdominal Exam Present: soft, normoactive bowel sounds. Absent: tenderness - *Routine Extremities Exam Absent: cyanosis, clubbing, edema - *Routine Skin Exam Present: warm. Absent: rash - *Routine Neurological Exam Present: alert, vision grossly intact, hearing grossly intact. Absent: oriented X3 Assessment and Plan (1) UTI (urinary tract infection) Status: Acute Category: Medical Code(s): N39.0 - Urinary tract infection, site not specified (2) Failure to thrive Status: Acute Category: Medical (3) Metabolic encephalopathy Status: Acute Category: Medical Code(s): G93.41 - Metabolic encephalopathy (4) UTI (urinary tract infection) Status: Acute Qualifiers: Urinary tract infection type: site unspecified Hematuria presence: without hematuria Qualified Code(s): N39.0 - Urinary tract infection, site not specified Category: Medical Code(s): N39.0 - Urinary tract infection, site not specified - Assessment and plan all Dx Assessment and Plan for all problems:: Continue IV Levaquin pending urine cultures. Plans for placement are underway
[2021-08-22 12:23] LABS: Eosinophils % 3 % (0-3); Lymphocytes % 4 % (10-50); Monocytes % 2 % (2-9); Neutrophils % 91 % (42-76); Total Cells Counted 100
[2021-08-22 12:24] LABS: Platelet Estimate Slight Decrease; RBC Morphology Normal
[2021-08-22 15:04] VITALS: BP 128/70; PULSE 71; RESP 17; TEMP 37.1; O2SAT 96
--- NOTE | 2021-08-22 18:10 | PC.NURSE ---
Pt has been agitated x1 this shift and was medicated per MAY. Since then pt has rested well. Pt has gotten up to use the bathroom x2. Pt has been a x1 assist w/ ambulation. No other acute changes or complaints, will monitor.
[2021-08-22 20:00] VITALS: BP 134/77; PULSE 90; RESP 17; TEMP 36.7; O2SAT 96
--- NOTE | 2021-08-23 04:06 | PC.NURSE ---
No acute changes thus far during my shift. Pt has slept in intervals. Bed alarm on for safety. Seizure pads in place. IV infusing per order. Pt has voiced no complaints. Call light in reach.
[2021-08-23 05:00] VITALS: BMI 17.1
[2021-08-23 07:45] LABS: Basophils % 0.2 % (0.1-2.0); Eosinophils # 0.1 K/mm3 (0.0-0.4); Eosinophils % 1.6 % (0.1-12.0); Hematocrit 36.9 % (42.0-52.0); Hemoglobin 12.8 g/dL (14.1-18.0); Lymphocytes # 0.6 K/mm3 (0.7-4.5); Mean Corpuscular HGB Conc 34.6 g/dL (31.8-35.4); Mean Corpuscular Hemoglobin 31.1 pg (27.0-31.2); Mean Corpuscular Volume 89.8 fl (80-94); Mean Platelet Volume 10.3 fl (7.4-10.4); Monocytes # 0.6 K/mm3 (0.1-1.0); Neutrophils # 5.8 K/mm3 (1.8-7.8); Neutrophils % 82.2 % (37.0-80.0); Platelet Count 111 K/mm3 (142-424); Red Blood Count 4.11 M/mm3 (4.60-6.20); Red Cell Distribution Width 15.4 % (11.5-17.5); White Blood Count 7.1 K/mm3 (4.8-10.8)
[2021-08-23 07:46] LABS: Chloride 106 mmol/L (98-107); Sodium 131 mmol/L (136-145)
[2021-08-23 07:49] LABS: Alanine Aminotransferase 29 U/L (12-78); Albumin Level 2.9 g/dl (3.5-5.0); Alkaline Phosphatase 71 U/L (38-126); Aspartate Amino Transferase 50 U/L (17-59); Bilirubin,Total 0.6 mg/dl (0.2-1.3); Blood Urea Nitrogen 12 mg/dl (9-20); Calcium 7.9 mg/dl (8.4-10.2); Carbon Dioxide 23 mmol/L (22.0-30.0); Creatinine Clearance Estimated 59 mL/min (50-200); Estimated Glomerular Filt Rate 217 ml/min (>60); GFR (African American) 263 ML/MIN (>60); Globulin 2.8 g/dL (1.3-3.2); Glucose 101 mg/dl (74-100); Total Protein,Serum 5.7 g/dl (6.3-8.2)
[2021-08-23 08:00] VITALS: BP 147/85; PULSE 81; RESP 18; TEMP 36.7; O2SAT 95
--- NOTE | 2021-08-23 08:37 | PC.NURSE ---
Dr. King aware of critical k of 3.0.
--- NOTE | 2021-08-23 11:22 | P.PN_ITS ---
Internal Medicine - PN: Subj *Date: 08/23/21 *Time: 11:22 Exam Vital signs and Labs for Last 24 Hours: Temp Pulse Resp BP Pulse Ox 98.1 F 81 18 147/85 H 95 08/23/21 08:00 08/23/21 08:00 08/23/21 08:00 08/23/21 08:00 08/23/21 08:00 Laboratory Results - last 24 hr 08/22/21 11:22: WBC 6.9 D, RBC 4.06 L, Hgb 13.0 L, Hct 37.4 L, MCV 92.2, MCH 31.9 H, MCHC 34.6, RDW 15.4, Plt Count 99 L, MPV 10.4, Neut % (Auto) 86.7 H, Lymph % (Auto) 6.4 L, [place] % (Auto) 6.2, Eos % (Auto) 0.3, Baso % (Auto) 0.4, Neut # (Auto) 6.0, Lymph # (Auto) 0.4 L, [place] # (Auto) 0.4, Eos # (Auto) 0.0, Baso # (Auto) 0.0, Total Counted 100, Neutrophils % (Manual) 91 H, Lymphocytes % (Manual) 4 L, Monocytes % (Manual) 2, Eosinophils % (Manual) 3, Platelet Estimate Slight decrease, RBC Morphology Normal 08/22/21 11:22: Sodium 129 L, Potassium 3.1 L, Chloride 103, Carbon Dioxide 25, Anion Gap 4.1 L, BUN 11 D, Creatinine 0.50 L, Estimated Creat Clear 59, Estimated GFR 168, Est GFR ( Amer) 203 D, Glucose 97, Calcium 8.0 L, Total Bilirubin 0.6, AST 57 D, ALT 23 D, Alkaline Phosphatase 71, Total Protein 5.5 L, Albumin 2.9 L, Globulin 2.6, Albumin/Globulin Ratio 1.1 08/23/21 07:20: WBC 7.1, RBC 4.11 L, Hgb 12.8 L, Hct 36.9 L, MCV 89.8, MCH 31.1, MCHC 34.6, RDW 15.4, Plt Count 111 L, MPV 10.3, Neut % (Auto) 82.2 H, Lymph % (Auto) 8.0 L, [place] % (Auto) 8.0, Eos % (Auto) 1.6, Baso % (Auto) 0.2, Neut # (Auto) 5.8, Lymph # (Auto) 0.[address] L, [place] # (Auto) 0.6, Eos # (Auto) 0.1, Baso # (Auto) 0.0 08/23/21 07:20: Sodium 131 L, Potassium 3.0 L, Chloride 106, Carbon Dioxide 23, Anion Gap 5.0, BUN 12, Creatinine 0.40 L, Estimated Creat Clear 59, Estimated GFR 217, Est GFR ( Amer) 263 D, Glucose 101 H, Calcium 7.9 L, Total Bilirubin 0.6, AST 50, ALT 29 D, Alkaline Phosphatase 71, Total Protein 5.7 L, Albumin 2.9 L, Globulin 2.8, Albumin/Globulin Ratio 1.0 L I & O for Last 24 hours: Intake & Output 08/20/21 08/21/21 08/22/21 08/23/21 23:59 23:59 23:59 23:59 Intake Total 3357 / 3357 3643 / 3843 4161 / 4161 1540 / 1540 Output Total 200 / 200 100 / 100 Balance 3357 / 3357 3443 / 3643 4161 / 4061 1440 / 1440 Weight 49.952 kg 50 kg 55.338 kg 55.452 kg Microbiology Reports for the Last 24 Hours: Microbiology 08/19/21 18:51 Urine,Clean Catch Urine Culture - Final Pseudomonas aeruginosa Assessment and Plan (1) UTI (urinary tract infection) Status: Acute Category: Medical Code(s): N39.0 - Urinary tract infection, site not specified (2) Failure to thrive Status: Acute Category: Medical (3) Metabolic encephalopathy Status: Acute Category: Medical Code(s): G93.41 - Metabolic encephalopathy (4) UTI (urinary tract infection) Status: Acute Qualifiers: Urinary tract infection type: site unspecified Hematuria presence: without hematuria Qualified Code(s): N39.0 - Urinary tract infection, site not specified Category: Medical Code(s): N39.0 - Urinary tract infection, site not specified The patient's infection will respond to the chosen ABx?: Yes (URINE CULTURE = PSEUDOMONAS SUSCEPTIBLE TO LEVAQUIN) Is the patient receiving the right drug, dose, and route?: Yes Could a more targeted ABx be ordered?: No
[2021-08-23 12:00] VITALS: PULSE 70
--- NOTE | 2021-08-23 12:17 | HMH.ACPN2 ---
Internal Medicine - PN: Subj *Date: 08/23/21 *Time: 12:17 Interval history: doing ok - has uti and low k today Exam Vital signs and Labs for Last 24 Hours: Temp Pulse Resp BP Pulse Ox 98.1 F 81 18 147/85 H 95 08/23/21 08:00 08/23/21 08:00 08/23/21 08:00 08/23/21 08:00 08/23/21 08:00 Laboratory Results - last 24 hr 08/22/21 11:22: Total Counted 100, Neutrophils % (Manual) 91 H, Lymphocytes % (Manual) 4 L, Monocytes % (Manual) 2, Eosinophils % (Manual) 3, Platelet Estimate Slight decrease, RBC Morphology Normal 08/23/21 07:20: WBC 7.1, RBC 4.11 L, Hgb 12.8 L, Hct 36.9 L, MCV 89.8, MCH 31.1, MCHC 34.6, RDW 15.4, Plt Count 111 L, MPV 10.3, Neut % (Auto) 82.2 H, Lymph % (Auto) 8.0 L, [place] % (Auto) 8.0, Eos % (Auto) 1.6, Baso % (Auto) 0.2, Neut # (Auto) 5.8, Lymph # (Auto) 0.6 L, [place] # (Auto) 0.6, Eos # (Auto) 0.1, Baso # (Auto) 0.0 08/23/21 07:20: Sodium 131 L, Potassium 3.0 L, Chloride 106, Carbon Dioxide 23, Anion Gap 5.0, BUN 12, Creatinine 0.40 L, Estimated Creat Clear 59, Estimated GFR 217, Est GFR ( Amer) 263 D, Glucose 101 H, Calcium 7.9 L, Total Bilirubin 0.6, AST 50, ALT 29 D, Alkaline Phosphatase 71, Total Protein 5.7 L, Albumin 2.9 L, Globulin 2.8, Albumin/Globulin Ratio 1.0 L I & O for Last 24 hours: Intake & Output 08/21/21 08/22/21 08/23/21 08/24/21 11:59 11:59 11:59 11:59 Intake Total 4712 / 4712 3925 / 3925 3584 / 3584 Output Total 200 / 200 100 / 100 Balance 4712 / 4712 3725 / 3725 3484 / 3484 Weight 110 lb 3.698 oz 122 lb 122 lb 4.012 oz Microbiology Reports for the Last 24 Hours: Microbiology 08/19/21 18:51 Urine,Clean Catch Urine Culture - Final Pseudomonas aeruginosa - Constitutional no acute distress - *Routine HEENT Exam Head: Present: normocephalic Eye: Present: EOMI, PERRL ENT: Present: mucous membranes dry - *Routine Neck Exam Absent: JVD - *Routine Respiratory Exam Present: decreased breath sounds - *Routine Cardiovascular Exam Present: RRR, murmur - *Routine Abdominal Exam Present: soft - *Routine Extremities Exam Absent: calf tenderness - *Routine Skin Exam Present: intact - *Routine Neurological Exam Present: alert, CN II-XII intact - Routine Psychiatric Exam Present: cooperative Assessment and Plan (1) UTI (urinary tract infection) Status: Acute Category: Medical Code(s): N39.0 - Urinary tract infection, site not specified (2) Failure to thrive Status: Acute Category: Medical (3) Metabolic encephalopathy Status: Acute Category: Medical Code(s): G93.41 - Metabolic encephalopathy (4) UTI (urinary tract infection) Status: Acute Qualifiers: Urinary tract infection type: site unspecified Hematuria presence: without hematuria Qualified Code(s): N39.0 - Urinary tract infection, site not specified Category: Medical Code(s): N39.0 - Urinary tract infection, site not specified (5) Pseudomonas aeruginosa infection Status: Acute Category: Medical Code(s): A49.8 - Other bacterial infections of unspecified site (6) Depression Status: Acute Qualifiers: Depression Type: unspecified Qualified Code(s): F32.A - Depression, unspecified Category: Medical Code(s): F32.A - Depression, unspecified (7) Anxiety Status: Acute Category: Medical Code(s): F41.9 - Anxiety disorder, unspecified
--- NOTE | 2021-08-23 13:06 | PC.NURSE ---
PT ALERT TO SELF, PLACE AND TIME THIS AM. PT HAS ATTEMPTED TO GET OUT OF BED ALONE WITH REDIRECTION GIVEN. BED ALARM IS IN USE AND WORKING R/T HX OF FALLS. PT DOES REQUIRE VERBAL CUEING AND REDIRECTION. CB IN REACH.
[2021-08-23 16:00] VITALS: BP 159/92; PULSE 60; RESP 16; TEMP 37; O2SAT 96
[2021-08-23 20:00] VITALS: BP 154/94; PULSE 81; RESP 18; TEMP 36.9; O2SAT 96
[2021-08-24 04:00] VITALS: BP 163/94; PULSE 91; RESP 16; TEMP 36.8; O2SAT 94
--- NOTE | 2021-08-24 04:59 | PC.NURSE ---
pt has rested some this shift, bed alarm remains on for safety, remains on room air, no complaints of pain, was able to state name, and where he was this shift
[2021-08-24 05:00] VITALS: BMI 16.0
[2021-08-24 07:19] LABS: Basophils # 0.1 K/mm3 (0-0.2); Basophils % 0.8 % (0.1-2.0); Eosinophils # 0.1 K/mm3 (0.0-0.4); Eosinophils % 1.6 % (0.1-12.0); Hematocrit 41.1 % (42.0-52.0); Lymphocytes # 0.7 K/mm3 (0.7-4.5); Lymphocytes % 9.3 % (10-50); Mean Corpuscular HGB Conc 34.8 g/dL (31.8-35.4); Mean Corpuscular Hemoglobin 32.2 pg (27.0-31.2); Mean Corpuscular Volume 92.4 fl (80-94); Mean Platelet Volume 10.3 fl (7.4-10.4); Monocytes # 0.7 K/mm3 (0.1-1.0); Monocytes % 10.2 % (1.7-9.3); Neutrophils # 5.4 K/mm3 (1.8-7.8); Neutrophils % 78.2 % (37.0-80.0); Platelet Count 110 K/mm3 (142-424); Red Blood Count 4.45 M/mm3 (4.60-6.20); Red Cell Distribution Width 15.7 % (11.5-17.5)
[2021-08-24 07:22] LABS: Chloride 106 mmol/L (98-107); Sodium 131 mmol/L (136-145)
[2021-08-24 07:23] LABS: Potassium 3.7 mmoL/L (3.5-5.1)
[2021-08-24 07:25] LABS: Blood Urea Nitrogen 8 mg/dl (9-20); Carbon Dioxide 21 mmol/L (22.0-30.0); Creatinine Clearance Estimated 56 mL/min (50-200); Estimated Glomerular Filt Rate 217 ml/min (>60); GFR (African American) 263 ML/MIN (>60); Hemoglobin 14.3 g/dL (14.1-18.0)
[2021-08-24 07:26] LABS: Calcium 8.5 mg/dl (8.4-10.2); Glucose 102 mg/dl (74-100)
[2021-08-24 07:27] LABS: Anion Gap 7.7 mEq/L (5-15)
[2021-08-24 08:00] VITALS: BP 178/97; PULSE 79; RESP 16; TEMP 36.6; O2SAT 98
--- NOTE | 2021-08-24 08:38 | HMH.ACPN2 ---
Internal Medicine - PN: Subj *Date: 08/24/21 *Time: 08:53 Interval history: 65-year-old male patient sitting up in bed in no apparent distress. He has tolerated breakfast and fed self this morning. Interacting with staff and is pleasant denies any concerns/needs. Still attempting placement for placement. Exam Vital signs and Labs for Last 24 Hours: Temp Pulse Resp BP Pulse Ox 97.8 F 79 16 178/97 H 98 08/24/21 08:00 08/24/21 08:00 08/24/21 08:00 08/24/21 08:00 08/24/21 08:00 Laboratory Results - last 24 hr 08/24/21 06:50: WBC 7.0, RBC 4.45 L, Hgb 14.3 D, Hct 41.1 L, MCV 92.4, MCH 32.2 H, MCHC 34.8, RDW 15.7, Plt Count 110 L, MPV 10.3, Neut % (Auto) 78.2, Lymph % (Auto) 9.3 L, [place] % (Auto) 10.2 H, Eos % (Auto) 1.6, Baso % (Auto) 0.8, Neut # (Auto) 5.4, Lymph # (Auto) 0.7, [place] # (Auto) 0.7, Eos # (Auto) 0.1, Baso # (Auto) 0.1 08/24/21 06:50: Sodium 131 L, Potassium 3.7 D, Chloride 106, Carbon Dioxide 21 L, Anion Gap 7.7, BUN 8 L D, Creatinine 0.40 L, Estimated Creat Clear 56, Estimated GFR 217, Est GFR ( Amer) 263, Glucose 102 H, Calcium 8.5 I & O for Last 24 hours: Intake & Output 08/21/21 08/22/21 08/23/21 08/24/21 23:59 23:59 23:59 23:59 Intake Total 3643 / 3843 4161 / 4161 1920 / 1920 1684 / 1684 Output Total 200 / 200 100 / 100 Balance 3443 / 3643 4161 / 4061 1820 / 1820 1684 / 1684 Weight 110 lb 3.698 oz 122 lb 122 lb 4.012 oz 115 lb Microbiology Reports for the Last 24 Hours: Microbiology 08/19/21 18:51 Urine,Clean Catch Urine Culture - Final Pseudomonas aeruginosa - Constitutional no acute distress, chronically ill appearing - *Routine HEENT Exam Head: Present: normocephalic Eye: Present: EOMI ENT: Present: mucous membranes moist - *Routine Neck Exam Present: trachea midline. Absent: tracheal deviation - *Routine Respiratory Exam Present: decreased breath sounds. Absent: accessory muscle use - *Routine Cardiovascular Exam Present: RRR - *Routine Abdominal Exam Present: soft, normoactive bowel sounds. Absent: tenderness, firm - *Routine Extremities Exam Present: full ROM, pulses intact. Absent: cyanosis, clubbing, edema - *Routine Skin Exam Present: intact, dry. Absent: cyanosis, erythema - *Routine Neurological Exam Present: alert, oriented X3. Absent: motor deficit - Routine Psychiatric Exam Present: unable to assess Assessment and Plan (1) UTI (urinary tract infection) Status: Acute Category: Medical Code(s): N39.0 - Urinary tract infection, site not specified (2) Failure to thrive Status: Acute Category: Medical (3) Metabolic encephalopathy Status: Acute Category: Medical Code(s): G93.41 - Metabolic encephalopathy (4) UTI (urinary tract infection) Status: Acute Qualifiers: Urinary tract infection type: site unspecified Hematuria presence: without hematuria Qualified Code(s): N39.0 - Urinary tract infection, site not specified Category: Medical Code(s): N39.0 - Urinary tract infection, site not specified (5) Pseudomonas aeruginosa infection Status: Acute Category: Medical Code(s): A49.8 - Other bacterial infections of unspecified site (6) Depression Status: Acute Qualifiers: Depression Type: unspecified Qualified Code(s): F32.A - Depression, unspecified Category: Medical Code(s): F32.A - Depression, unspecified (7) Anxiety Status: Acute Category: Medical Code(s): F41.9 - Anxiety disorder, unspecified - Assessment and plan all Dx Assessment and Plan for all problems:: Rounded with Dr. King, all orders per Dr. King: 1. Continue current medical management 2. Continuing to attempt placement
[2021-08-24 16:00] VITALS: BP 152/91; PULSE 67; RESP 16; TEMP 36.7; O2SAT 99
--- NOTE | 2021-08-24 18:49 | PC.NURSE ---
Pt has been pleasant this shift. Oriented to name and place mostyl. Pt has been a x1 assistance to and from the bathroom. No other acute changes, will monitor.
[2021-08-24 20:00] VITALS: BP 148/81; PULSE 73; RESP 16; TEMP 36.8; O2SAT 97
[2021-08-25 04:00] VITALS: BP 159/76; PULSE 71; RESP 16; TEMP 36.6; O2SAT 95
--- NOTE | 2021-08-25 04:01 | PC.NURSE ---
No acute changes noted this shift. Pt is alert to self. Has not complained of any discomfort. Has slept well t/o night. Ambulated with assistance to BR. Was also incontinent of urine. VSS. Medication administered per may. Will continue to monitor.
[2021-08-25 05:00] VITALS: BMI 16.0
[2021-08-25 07:28] LABS: Coronavirus 19, PCR Not Detected (NotDetected); Influenza A, PCR Not Detected (NotDetected); Influenza B, PCR Not Detected (NotDetected)
[2021-08-25 07:56] LABS: Basophils # 0.1 K/mm3 (0-0.2); Basophils % 1.2 % (0.1-2.0); Eosinophils # 0.1 K/mm3 (0.0-0.4); Eosinophils % 2.1 % (0.1-12.0); Hematocrit 43.4 % (42.0-52.0); Hemoglobin 14.7 g/dL (14.1-18.0); Lymphocytes # 0.8 K/mm3 (0.7-4.5); Lymphocytes % 14.5 % (10-50); Mean Corpuscular HGB Conc 33.8 g/dL (31.8-35.4); Mean Corpuscular Hemoglobin 31.6 pg (27.0-31.2); Mean Corpuscular Volume 93.6 fl (80-94); Mean Platelet Volume 9.2 fl (7.4-10.4); Monocytes # 0.6 K/mm3 (0.1-1.0); Monocytes % 11.3 % (1.7-9.3); Neutrophils # 3.9 K/mm3 (1.8-7.8); Platelet Count 136 K/mm3 (142-424); Red Blood Count 4.63 M/mm3 (4.60-6.20); Red Cell Distribution Width 15.8 % (11.5-17.5); White Blood Count 5.5 K/mm3 (4.8-10.8)
[2021-08-25 07:57] VITALS: BP 150/89; PULSE 66; RESP 17; TEMP 36.4; O2SAT 99
[2021-08-25 08:17] LABS: Chloride 107 mmol/L (98-107); Sodium 132 mmol/L (136-145)
[2021-08-25 08:20] LABS: Anion Gap 10.2 mEq/L (5-15); Blood Urea Nitrogen 10 mg/dl (9-20); Calcium 8.8 mg/dl (8.4-10.2); Carbon Dioxide 20 mmol/L (22.0-30.0); Creatinine Clearance Estimated 56 mL/min (50-200); Estimated Glomerular Filt Rate 217 ml/min (>60); GFR (African American) 263 ML/MIN (>60); Glucose 99 mg/dl (74-100)
[2021-08-25 08:28] LABS: Potassium 5.2 mmoL/L (3.5-5.1)
--- NOTE | 2021-08-25 09:17 | HMH.DCSUM ---
General - General Admission date:: 08/19/21 Discharge date: 08/25/21 HPI HPI: 65-year-old male patient to [facility] emergency department per EMS for generalized weakness, weight loss, decline in ability to care for self, and multiple falls over the last several months with significant weight loss. The emergency department patient was disheveled, incontinent of bowel and bladder and denied fever/chills/body aches, nausea/vomiting/diarrhea, or any pain or other symptoms UA revealed 2+ leukocytes, 2+ bacteria and positive nitrates Head CT revealed Postoperative changes. Atrophy and mild periventricular chronic ischemic changes. No acute intracranial abnormality identified. Chest x-ray no acute findings Hospital Course Hospital Course: 65-year-old male patient to [facility] emergency department per EMS for generalized weakness, weight loss, decline in ability to care for self, and multiple falls over the last several months with significant weight loss. The emergency department patient was disheveled, incontinent of bowel and bladder and denied fever/chills/body aches, nausea/vomiting/diarrhea, or any pain or other symptoms UA revealed 2+ leukocytes, 2+ bacteria and positive nitrates It is a lot 08/19/[address]: FINDINGS: Axial images of the head were obtained without contrast. Coronal reformatted images were also obtained. This study was performed with techniques to keep radiation doses as low as reasonably achievable (ALARA). Individualized dose reduction techniques using automated exposure control or adjustment of mA and/or kV according to the patient's size were employed. Postoperative change at the right base the brain causes streak artifact. There is age-appropriate atrophy. Periventricular low-attenuation areas are seen consistent with mild chronic ischemic changes. There are areas of bilateral encephalomalacia. There is no evidence of intracranial hemorrhage or mass. There is mild ventriculomegaly. There is no evidence of acute infarct. There is no evidence of shift of the midline structures. Postoperative changes are seen from right craniotomy. IMPRESSION: Postoperative changes. Atrophy and mild periventricular chronic ischemic changes. No acute intracranial abnormality identified. Reviewed, Interpreted and Dictated by Donavan Marroquin III, MD Chest x-ray revealed no acute findings UTI (urinary tract infection), Pseudomonas aeruginosa infection He has received levofloxacin p.o. Will be discharged on levofloxacin p.o. x4 days Failure to thrive, Protein Calorie Malnutrition He has been tolerating a diet without difficulty and feeding self Dietitian is seen and discussed better nutrition with patient Metabolic encephalopathy He is alert and oriented x3 All lab work is returned to baseline Depression, Anxiety He will be discharged on oxazepam and sertraline He has had no episodes of anxiety or acting out Very pleasant with staff and is cooperative with care 65-year-old male patient sitting up in bed resting quietly he denies any concerns/needs at present. He is actively participating in physical therapy and is very pleasant today. Instructed he will be discharged to [facility] he is agreeable to this and said he is looking forward to going there. He has not received any antianxiety medication in several days and has not displayed any episodes of anxiety or acting out. Urinary culture grew out Pseudomonas aerugeinosa and and it is sensitive to levofloxacin. Dietary has met with patient and discussed better nutrition and he has tolerated a regular diet and fed self while he was inpatient. PLAN: 1. We will discharge to [facility] today 2. Levofloxacin 500 mg p.o. daily x4 days Objective Vital signs: Temp Pulse Resp BP Pulse Ox 97.5 F L 66 17 150/89 H 99 08/25/21
--- NOTE | 2021-08-25 11:25 | PC.NURSE ---
Spoke to Caridad with [facility]. The truck is on a run right now, when they get back, EMS will be available to transport pt to [facility]. Lucy Zhou RN has already called report to [facility]. PIV has been removed. Will continue to monitor pt until he is discharged from the floor.
--- NOTE | 2021-08-27 12:49 | CARE MANAGER ---
Janeth from [facility] states that patient is adjusting to the new environment a\nd denies any other questions or concerns.
== END 2021-08-25 12:14 | DRG 689 ==
LOC: ER 16:04 → 2ND 18:01
PROVIDERS: Family Medicine; Nurse Practitioner Family; Admitting Provider Emergency Medicine; Emergency Provider Emergency Medicine; PCP Emergency Medicine; Visit Provider Emergency Medicine
DX: N39.0 Urinary tract infection, site not specified (principal); G93.41 Metabolic encephalopathy; E46 Unspecified protein-calorie malnutrition; Z68.1 Body mass index [BMI] 19.9 or less, adult; F32.A Depression, unspecified; F41.9 Anxiety disorder, unspecified; B96.5 Pseudomonas (aeruginosa) (mallei) (pseudomallei) as the cause of diseases classified elsewhere
CPT/HCPCS: 36415; 70450; 71045; 80048; 80053; 81001; 82550; 83735; 84484; 85007; 85025; 87086; 87088; 87186; 93005; 97110; 97116; 97163; 97166; 97530; 97535; 99285; C9803; J1956; U0003; U0005

== ENCOUNTER 2022-01-05 19:30 | Inpatient (IN) | payer MEDICAID, SELFPAY ==
[2022-01-05] VITALS (7 sets, daily range): BP systolic 147–170; BP diastolic 74–107; PULSE 80–95; RESP 18; TEMP 36.6; O2SAT 95–98; BMI 20.9
--- NOTE | 2022-01-05 19:40 | XR_ITS ---
PROCEDURE INFORMATION: Exam: XR Chest Exam date and time: 01/05/2022 7:43 PM Age: 66 years old Clinical indication: Injury or trauma; Fall; Blunt trauma (contusions or hematomas) TECHNIQUE: Imaging protocol: Radiologic exam of the chest. Views: 2 views. COMPARISON: CR XR CHEST PORTABLE 08/19/2021 4:21 PM FINDINGS: Lungs: Hyperinflation. No consolidation. Pleural spaces: No pneumothorax. Heart/Mediastinum: No cardiomegaly. Bones/joints: Degenerative changes of the shoulders. IMPRESSION: Chronic changes without acute process.
--- NOTE | 2022-01-05 19:40 | XR_ITS ---
PROCEDURE INFORMATION: Exam: XR Left Hip Exam date and time: 01/05/2022 7:51 PM Age: 66 years old Clinical indication: Injury or trauma; Fall; Blunt trauma (contusions or hematomas); Left; Hip TECHNIQUE: Imaging protocol: Radiologic exam of the Left hip. Views: 2 or 3 views hip with pelvis when performed. COMPARISON: No relevant prior studies available. FINDINGS: Bones/joints: Mildly comminuted and impacted fracture at the left femoral head neck junction. Soft tissues: Unremarkable. Vasculature: Vascular calcifications. IMPRESSION: Mildly comminuted and impacted fracture at the left femoral head neck junction.
--- NOTE | 2022-01-05 19:50 | HMH.EDGENADL ---
Discharge Plan Disposition Patient Disposition: Admitted As Inpatient Condition: Good Prescriptions Prescriptions: No Action ibuprofen 600 mg tablet 600 mg PO QID PRN (Reason: pain) carvedilol 3.125 mg tablet 3.125 mg PO BID famotidine 20 mg tablet 20 mg PO DAILY Lactobacillus acidoph-L.bulgar 1 million cell tablet,chewable 1 tab PO DAILY folic acid 1 mg tablet 1 mg PO DAILY levetiracetam 750 mg tablet 750 mg PO BID melatonin 5 mg capsule 5 mg PO HS oxcarbazepine 600 mg tablet 600 mg PO BID sennosides [senna] 8.6 mg tablet 8.6 mg PO BID PRN (Reason: Constipation) trazodone 50 mg tablet 50 mg PO DAILY amlodipine 10 MG tablet 1 tab PO HS sertraline 100 MG tablet 100 mg PO DAILY lisinopril 40 MG tablet 40 mg PO DAILY Referrals Follow up/Referrals: Otilio King MD [Primary Care Provider] - See instructions Clinical Impressions Clinical Impression: Fall on stairs Qualifiers: Encounter type: initial encounter Qualified Code(s): W10.9XXA - Fall (on) (from) unspecified stairs and steps, initial encounter Closed intertrochanteric fracture of femur Qualifiers: Encounter type: initial encounter Fracture alignment: nondisplaced Laterality: left Qualified Code(s): S72.145A - Nondisplaced intertrochanteric fracture of left femur, initial encounter for closed fracture Discharge ED Provider: Jesica Brown General Adult HPI General Chief complaint: Fall Stated complaint: Fall Time Seen by Provider: 01/05/22 19:50 Mode of Arrival: EMS Source of Information: EMS Limitations: No Limitations Description of Symptoms (Recalled from ER Triage Doc. by RN): EMS reported pt fell down one stair/ pt c/o lt hip pain History of Present Illness HPI narrative: This patient is a 66-year-old male with a history of depression, anxiety, failure to thrive, and urinary tract infections presented to the emergency department for evaluation after a mechanical fall from 1 step. Patient reports that he fell onto his left hip. He denied his head or lose consciousness. He complains of moderate, aching left hip pain that is constant at this time. He was able to ambulate afterwards. He denies any head injury, neck pain, back pain, chest pain, or other extremity pain. He was well prior to the fall. He does not take any anticoagulation. Related Data Home Medications Medication Instructions Recorded Confirmed Lactobacillus acidoph-L.bulgaricus 1 tab PO DAILY supplement 01/18/18 01/05/22 1 million cell chewable tablet carvedilol 3.125 mg tablet 3.125 mg PO BID High blood pressure 01/18/18 01/05/22 famotidine 20 mg tablet 20 mg PO DAILY acid control 01/18/18 01/05/22 folic acid 1 mg tablet 1 mg PO DAILY Supplement 01/18/18 01/05/22 ibuprofen 600 mg tablet 600 mg PO QID PRN pain 01/18/18 01/05/22 levetiracetam 750 mg tablet 750 mg PO BID seizures 01/18/18 01/05/22 melatonin 5 mg capsule 5 mg PO HS Insomnia 01/18/18 01/05/22 oxcarbazepine 600 mg tablet 600 mg PO BID seizures 01/18/18 01/05/22 sennosides 8.6 mg tablet (senna) 8.6 mg PO BID PRN Constipation 01/18/18 01/05/22 trazodone 50 mg tablet 50 mg PO DAILY sleep 01/18/18 01/05/22 amlodipine 10 mg tablet 1 tab PO HS High blood pressure 08/19/21 01/05/22 lisinopril 40 mg tablet 40 mg PO DAILY High blood pressure 08/20/21 01/05/22 sertraline 100 mg tablet 100 mg PO DAILY Depression 08/20/21 01/05/22 Allergies Allergy/AdvReac Type Severity Reaction Status Date / Time No Known Allergies Allergy Verified 12/19/19 10:14 [facility] Social History Smoking Status: Current every day smoker tobacco type: cigarettes packs per day: 1 alcohol intake: never current occupational status: disabled Travel in the last 8 weeks: None housing: assisted living facility caffeine: Yes ROS Obtained: Yes All systems reviewed & no additional complaints ex
--- NOTE | 2022-01-05 20:03 | CT_ITS ---
PROCEDURE INFORMATION: Exam: CT Pelvis Without Contrast; Skeletal Exam date and time: 01/05/2022 8:19 PM Age: 66 years old Clinical indication: Injury or trauma; Fall; Additional info: Fall, pain TECHNIQUE: Imaging protocol: Computed tomography of the pelvis without contrast. Exam focused on the skeleton. Radiation optimization: All CT scans at this facility use at least one of these dose optimization techniques: automated exposure control; mA and/or kV adjustment per patient size (includes targeted exams where dose is matched to clinical indication); or iterative reconstruction. COMPARISON: CR XR HIP LT 2-3V W/PELVIS 01/05/2022 7:51 PM FINDINGS: Reproductive: Prostate calcifications. Vasculature: Calcified atherosclerosis. No aneurysm. Bones/joints: Mildly comminuted and impacted fracture at the left femoral head neck junction. Soft tissues: Unremarkable. IMPRESSION: Mildly comminuted and impacted fracture at the left femoral head neck junction.
--- NOTE | 2022-01-05 20:03 | XR_ITS ---
PROCEDURE INFORMATION: Exam: XR Left Femur Exam date and time: 01/05/2022 7:58 PM Age: 66 years old Clinical indication: Injury or trauma; Fall; Blunt trauma; Thigh or upper leg; Left; Additional info: Fall, pain TECHNIQUE: Imaging protocol: Radiologic exam of the Left femur. Views: 2 views. COMPARISON: CR XR HIP LT 2-3V W/PELVIS 01/05/2022 7:51 PM FINDINGS: Bones/joints: Mildly comminuted and impacted fracture at the left femoral head neck junction. Degenerative changes of the knee most prominent within the medial compartment. Soft tissues: Unremarkable. Vasculature: Vascular calcifications. IMPRESSION: Mildly comminuted and impacted fracture at the left femoral head neck junction.
--- NOTE | 2022-01-05 20:03 | XR_ITS ---
PROCEDURE INFORMATION: Exam: XR Left Knee Exam date and time: 01/05/2022 7:58 PM Age: 66 years old Clinical indication: Injury or trauma; Fall; Blunt trauma; Knee; Left; Additional info: Fall, pain TECHNIQUE: Imaging protocol: Radiologic exam of the Left knee. Views: 1 or 2 views. COMPARISON: No relevant prior studies available. FINDINGS: Bones/joints: Mild degenerative changes most prominent within the medial compartment. Soft tissues: Normal. Vasculature: Vascular calcifications. IMPRESSION: Chronic changes without acute process.
--- NOTE | 2022-01-05 20:11 | CT_ITS ---
PROCEDURE INFORMATION: Exam: CT Head Without Contrast Exam date and time: 01/05/2022 8:12 PM Age: 66 years old Clinical indication: Injury or trauma; Fall; Additional info: Fall, pain TECHNIQUE: Imaging protocol: Computed tomography of the head without contrast. Radiation optimization: All CT scans at this facility use at least one of these dose optimization techniques: automated exposure control; mA and/or kV adjustment per patient size (includes targeted exams where dose is matched to clinical indication); or iterative reconstruction. COMPARISON: CT HEAD/BRAIN WO CON 08/19/2021 4:05 PM FINDINGS: Limitations: Patient motion. Brain: Moderate to severe volume loss. Decreased attenuation of the supratentorial white matter is likely secondary to chronic microvascular ischemia. There is encephalomalacia involving the right frontal lobe, right temporal lobe, right parietal lobe, left frontal lobe and left occipital lobe. No definite acute intracranial hemorrhage. No midline shift or significant intracranial mass effect. Cerebral ventricles: Ventriculomegaly is commensurate for degree of volume loss. Paranasal sinuses: Mild paranasal sinus disease. Mastoid air cells: Visualized mastoid air cells are well aerated. Bones/joints: Previous right-sided pterional craniotomy. No acute calvarial fracture. Soft tissues: Unremarkable. Vasculature: Previous right MCA aneurysm coiling. IMPRESSION: No acute intracranial abnormality.
--- NOTE | 2022-01-05 20:11 | CT_ITS ---
PROCEDURE INFORMATION: Exam: CT Cervical Spine Without Contrast Exam date and time: 01/05/2022 8:12 PM Age: 66 years old Clinical indication: Injury or trauma; Fall; Additional info: Fall, pain TECHNIQUE: Imaging protocol: Computed tomography of the cervical spine without contrast. Radiation optimization: All CT scans at this facility use at least one of these dose optimization techniques: automated exposure control; mA and/or kV adjustment per patient size (includes targeted exams where dose is matched to clinical indication); or iterative reconstruction. COMPARISON: CT HEAD/BRAIN WO CON 08/19/2021 4:05 PM FINDINGS: Limitations: Patient motion. Bones/joints: Ylck-rw-mixchvpf dextroconvex curvature. Non-specific straightening. Trace anterolisthesis of C4 on C5. Vertebral body heights are preserved. Soyo-eh-aocayakx degenerative change about the dens. Mild to moderate prevertebral osteophytosis. There are bilateral facet joint degenerative changes. No acute cervical spine fracture. No definite significant central canal stenosis within limitations of technique. Multilevel cervical foraminal stenoses. Lungs: Scarring at the lung apices. Pleural spaces: No visible pneumothorax. Thyroid: Heterogeneous thyroid gland. Soft tissues: Unremarkable. IMPRESSION: No acute cervical spine fracture.
--- NOTE | 2022-01-05 20:24 | PC.NURSE ---
Pt in RAD for CT and XRAYS
--- NOTE | 2022-01-05 20:29 | PC.NURSE ---
Pt back from RAD
[2022-01-05 20:37] LABS: Coronavirus 19, PCR Not Detected (NotDetected); Influenza A, PCR Not Detected (NotDetected); Influenza B, PCR Not Detected (NotDetected)
[2022-01-05 20:58] LABS: Alanine Aminotransferase 31 U/L (12-78); Albumin Level 5.2 g/dl (3.5-5.0); Albumin/Globulin Ratio 1.5 (1.1-1.8); Alkaline Phosphatase 176 U/L (38-126); Anion Gap 21.4 mEq/L (5-15); Aspartate Amino Transferase 36 U/L (17-59); Bilirubin,Total 0.4 mg/dl (0.2-1.3); Blood Urea Nitrogen 16 mg/dl (9-20); Calcium 10.4 mg/dl (8.4-10.2); Carbon Dioxide 23 mmol/L (22.0-30.0); Chloride 90 mmol/L (98-107); Creatinine Clearance Estimated 62 mL/min (50-200); Estimated Glomerular Filt Rate 136 ml/min (>60); GFR (African American) 164 ML/MIN (>60); Globulin 3.5 g/dL (1.3-3.2); Glucose 120 mg/dl (74-100); Potassium 4.4 mmoL/L (3.5-5.1); Sodium 130 mmol/L (136-145); Total Protein,Serum 8.7 g/dl (6.3-8.2)
[2022-01-05 21:03] LABS: Basophils % 0.2 % (0.1-2.0); Eosinophils # 0.1 K/mm3 (0.0-0.4); Eosinophils % 0.3 % (0.1-12.0); Hematocrit 45.5 % (42.0-52.0); Hemoglobin 15.2 g/dL (14.1-18.0); Lymphocytes # 0.8 K/mm3 (0.7-4.5); Lymphocytes % 5.9 % (10-50); Mean Corpuscular HGB Conc 33.3 g/dL (31.8-35.4); Mean Corpuscular Hemoglobin 31.3 pg (27.0-31.2); Mean Corpuscular Volume 93.9 fl (80-94); Mean Platelet Volume 7.5 fl (7.4-10.4); Monocytes # 0.8 K/mm3 (0.1-1.0); Neutrophils # 11.6 K/mm3 (1.8-7.8); Neutrophils % 87.5 % (37.0-80.0); Platelet Count 334 K/mm3 (142-424); Red Blood Count 4.84 M/mm3 (4.60-6.20); Red Cell Distribution Width 14.4 % (11.5-17.5); White Blood Count 13.3 K/mm3 (4.8-10.8)
[2022-01-05 21:05] LABS: MANUAL DIFFERENTIAL MANUAL DIFFERENTIAL (MANUAL DIFF)
[2022-01-05 21:06] LABS: INR 0.95 (0.9-1.1); Prothrombin Time 10.3 seconds (10.1-12.5)
--- NOTE | 2022-01-05 21:41 | PC.NURSE ---
Rechecked pt conditioned. No needs or complaints voiced.
[2022-01-05 22:03] LABS: Lymphocytes % 4 % (10-50); Monocytes % 2 % (2-9); Neutrophils % 94 % (42-76); Platelet Estimate Normal; RBC Morphology Normal; Total Cells Counted 100
--- NOTE | 2022-01-05 22:58 | EXP.HP ---
History of Present Illness *Admission Date: 01/05/22 *Reason for visit:: Fall, Left hip pain *History of present illness: Mr. Khan is a 66-year-old male with a past medical history of Seizure Disorder, Depression, Anxiety, Protein Calorie Malnutrition and Failure to thrive. He lives at a detention and presented to the ER due to a fall at ground level at the facility. In the ER he had multiple imaging studies including a CT of the head, CT cervical spine, CT pelvis and xrays of the lower extremities. Imaging findings showed a mildly communited and impacted fracture at the left femoral head neck junction. The ER spoke with Orthopaedics surgeon who recommended evaluation. The patient was seen in the ER and was complaining of pain at the left hip site. He denies losing consciousness with the fall or any loss of bowel or bladder. The patient will be admitted with initial impression: Closed intertrochanteric fracture of the left femur. He will be given analgesics and Orthopaedics will be consulted to see the patient. The plan of care was discussed at bedside with the patient on admission. The patient verbalized understanding and agreement with the plan of care. [facility] Medical History Depression History of fall Protein calorie malnutrition Seizure disorder Social History Smoking Status: Current every day smoker tobacco type: cigarettes packs per day: 1 alcohol intake: never current occupational status: disabled Travel in the last 8 weeks: None housing: assisted living facility caffeine: Yes Review of Systems Review of Systems Review of systems:: pertinent systems reviewed and negative unless documented below Constitutional Constitutional: Reports system reviewed and no additional complaints, except as documented Eyes Eyes: Reports system reviewed and no additional complaints, except as documented ENT Ears, Nose, Mouth, and Throat: Reports system reviewed and no additional complaints, except as documented *Cardiovascular Cardiovascular: Reports system reviewed and no additional complaints, except as documented *Respiratory Respiratory: Reports system reviewed and no additional complaints, except as documented *Gastrointestinal Gastrointestinal: Reports system reviewed and no additional complaints, except as documented *Genitourinary Genitourinary: Reports system reviewed and no additional complaints, except as documented *Musculoskeletal Musculoskeletal: Reports arthralgias, Reports joint swelling and Reports limited range of motion Integumentary/Breasts Skin/Breast: Reports system reviewed and no additional complaints, except as documented *Neurologic Neurologic: Reports system reviewed and no additional complaints, except as documented Psychiatric Psychiatric: Reports system reviewed and no additional complaints, except as documented Endocrine Endocrine: Reports system reviewed and no additional complaints, except as documented Hematologic/Lymphatic Hematologic/Lymphatic: Reports system reviewed and no additional complaints, except as documented Allergic/Immunologic Allergic/Immunologic: Reports system reviewed and no additional complaints, except as documented Meds Home Medications and Allergies Home Medications Medication Instructions Recorded Confirmed Type Lactobacillus acidoph-L.bulgaricus 1 tab PO DAILY supplement 01/18/18 01/05/22 History 1 million cell chewable tablet carvedilol 3.125 mg tablet 3.125 mg PO BID High blood pressure 01/18/18 01/05/22 History famotidine 20 mg tablet 20 mg PO DAILY acid control 01/18/18 01/05/22 History folic acid 1 mg tablet 1 mg PO DAILY Supplement 01/18/18 01/05/22 History ibuprofen 600 mg tablet 600 mg PO QID PRN pain 01/18/18 01/05/22 History levetiracetam 750 mg tablet 750 mg PO BID seizures 01/18/18 01/05/22 History melatonin 5 mg capsule 5 mg PO HS Insomnia 01/18/18 11
--- NOTE | 2022-01-05 23:11 | PC.NURSE ---
Updated Suzy with Mauro Nguyễn
--- NOTE | 2022-01-05 23:41 | PC.NURSE ---
Pt arrived to floor via stretcher at this time.
[2022-01-06] VITALS (19 sets, daily range): BP systolic 89–196; BP diastolic 44–117; PULSE 67–100; RESP 13–18; TEMP 36.6–43; O2SAT 94–99; BMI 20.9
--- NOTE | 2022-01-06 00:31 | INFXCTL.NOTE ---
pt has been admitted to the floor. He is alert but disoriented. Alert to self. Incontinent of urine @ time of admission. Pt dnies any current pain @ this time. pulses good to ble. BS+ lungs are cta. per registration pt is a walker of the [facility]. Contacted quang lazo who reports he was just readmitted there yesterday after a rehab stay at [facility]. pt is unable to provide me any history or current issues. Just reports that he fell down a step.
[2022-01-06 07:25] LABS: Basophils % 0.2 % (0.1-2.0); Eosinophils # 0.1 K/mm3 (0.0-0.4); Eosinophils % 0.5 % (0.1-12.0); Hematocrit 42.3 % (42.0-52.0); Lymphocytes # 0.6 K/mm3 (0.7-4.5); Lymphocytes % 5.1 % (10-50); Mean Corpuscular HGB Conc 33.1 g/dL (31.8-35.4); Mean Corpuscular Hemoglobin 31.1 pg (27.0-31.2); Mean Corpuscular Volume 93.7 fl (80-94); Mean Platelet Volume 7.8 fl (7.4-10.4); Neutrophils # 10.7 K/mm3 (1.8-7.8); Neutrophils % 86.1 % (37.0-80.0); Platelet Count 306 K/mm3 (142-424); Red Blood Count 4.51 M/mm3 (4.60-6.20); Red Cell Distribution Width 14.5 % (11.5-17.5); White Blood Count 12.4 K/mm3 (4.8-10.8)
[2022-01-06 07:30] LABS: MANUAL DIFFERENTIAL MANUAL DIFFERENTIAL (MANUAL DIFF)
[2022-01-06 07:33] LABS: Alanine Aminotransferase 25 U/L (12-78); Albumin Level 4.7 g/dl (3.5-5.0); Albumin/Globulin Ratio 1.6 (1.1-1.8); Alkaline Phosphatase 151 U/L (38-126); Anion Gap 19.5 mEq/L (5-15); Aspartate Amino Transferase 32 U/L (17-59); Bilirubin,Total 0.5 mg/dl (0.2-1.3); Blood Urea Nitrogen 16 mg/dl (9-20); Calcium 9.9 mg/dl (8.4-10.2); Carbon Dioxide 22 mmol/L (22.0-30.0); Chloride 93 mmol/L (98-107); Creatinine Clearance Estimated 62 mL/min (50-200); Estimated Glomerular Filt Rate 167 ml/min (>60); GFR (African American) 203 ML/MIN (>60); Glucose 112 mg/dl (74-100); Potassium 4.5 mmoL/L (3.5-5.1); Sodium 130 mmol/L (136-145); Total Protein,Serum 7.7 g/dl (6.3-8.2)
--- NOTE | 2022-01-06 07:47 | EXP.ACUTE.PN ---
Subjective *Date: 01/06/22 *Time: 16:32 Interval history: Patient was alert on rounds. Complaining of left hip pain. On room air. Blood pressure controlled this morning but is elevated through the day. Denies any chest pain, shortness of breath, nausea or vomiting. Of note, was recently at [facility] until just this week. He has a state guardian. N.p.o. this morning Medical Exam Vital signs and Labs for Last 24 Hours: Vital Signs Temp Pulse Pulse Resp BP BP Pulse Ox 01/06/22 04:00 98 F 94 H 16 165/91 H 98 01/05/22 23:41 98 F 91 H 18 161/74 H 01/05/22 23:30 91 H 168/107 H 98 01/05/22 23:00 94 H 169/105 H 97 01/05/22 22:30 94 H 161/95 H 97 01/05/22 22:00 95 H 164/100 H 95 01/05/22 21:37 90 170/106 H 97 01/05/22 19:30 98 F 80 18 147/85 H 97 Intake and Output 01/05/22 01/05/22 01/06/22 15:59 23:59 07:59 Output Total 0 / 0 Balance 0 / 0 Output: Output, Urine Amount 0 / 0 Other: Number of Unmeasured Voids 1 Weight 58.967 kg Laboratory Results - last 24 hr 01/05/22 20:32: SARS-CoV-2 (PCR) Not detected, Influenza A Untype (PCR) Not detected, Influenza Type B (PCR) Not detected 01/05/22 20:39: WBC 13.3 H, RBC 4.84, Hgb 15.2, Hct 45.5, MCV 93.9, MCH 31.3 H, MCHC 33.3, RDW 14.4, Plt Count 334, MPV 7.5, Neut % (Auto) 87.5 H, Lymph % (Auto) 5.9 L, [place] % (Auto) 6.0, Eos % (Auto) 0.3, Baso % (Auto) 0.2, Neut # (Auto) 11.6 H, Lymph # (Auto) 0.8, [place] # (Auto) 0.8, Eos # (Auto) 0.1, Baso # (Auto) 0.0, Total Counted 100, Neutrophils % (Manual) 94 H, Lymphocytes % (Manual) 4 L, Monocytes % (Manual) 2, Platelet Estimate Normal, RBC Morphology Normal 01/05/22 20:39: Sodium 130 L, Potassium 4.4, Chloride 90 L, Carbon Dioxide 23, Anion Gap 21.4 H, BUN 16, Creatinine 0.60 L, Estimated Creat Clear 62, Estimated GFR 136, Est GFR ( Amer) 164, Glucose 120 H, Calcium 10.4 H, Total Bilirubin 0.4, AST 36, ALT 31, Alkaline Phosphatase 176 H, Total Protein 8.7 H D, Albumin 5.2 H, Globulin 3.5 H, Albumin/Globulin Ratio 1.5 01/05/22 20:39: PT 10.3, INR 0.95 01/06/22 06:46: Sodium 130 L, Potassium 4.5, Chloride 93 L, Carbon Dioxide 22, Anion Gap 19.5 H, BUN 16, Creatinine 0.50 L, Estimated Creat Clear 62, Estimated GFR 167, Est GFR ( Amer) 203 D, Glucose 112 H, Calcium 9.9, Total Bilirubin 0.5, AST 32, ALT 25, Alkaline Phosphatase 151 H, Total Protein 7.7, Albumin 4.7, Globulin 3.0, Albumin/Globulin Ratio 1.6 01/06/22 06:46: WBC 12.4 H, RBC 4.51 L, Hgb 14.0 L, Hct 42.3, MCV 93.7, MCH 31.1, MCHC 33.1, RDW 14.5, Plt Count 306, MPV 7.8, Neut % (Auto) 86.1 H, Lymph % (Auto) 5.1 L, [place] % (Auto) 8.0, Eos % (Auto) 0.5, Baso % (Auto) 0.2, Neut # (Auto) 10.7 H, Lymph # (Auto) 0.6 L, [place] # (Auto) 1.0, Eos # (Auto) 0.1, Baso # (Auto) 0.0 I & O for Labs for Last 24 Hours: Intake & Output 01/03/22 01/04/22 01/05/22 01/06/22 23:59 23:59 23:59 23:59 Output Total 0 / 0 Balance 0 / 0 Weight 58.967 kg Constitutional: Present no acute distress, thin and cooperative Head: Present atraumatic and normocephalic ENT: Present normal exam and mucous membranes moist Respiratory: Present CTA bilaterally and normal respiratory effort; Absent wheezes or crackles Cardiac: Present Reg Rate and Rhythm GI: Present normal bowel sounds; Absent tenderness Extremities: Present tenderness (over left hip); Absent normal inspection (left leg shorter and externally rotated) Skin: Present intact; Absent erythema Neuro: Present Grossly Intact, alert and awake Assessment and Plan *Assessment and plan (1) Closed intertrochanteric fracture of femur: Status: Acute Category: Medical Code(s): S72.143A - Displaced intertrochanteric fracture of unspecified femur, initial encounter for closed fracture (2) Hyponatremia: Status: Acute Category: Medical Code(s): E87.1 - Hypo-osmolality and hyponatremia (3) Seizure disorder: Status: Acut
--- NOTE | 2022-01-06 08:47 | EXP.ORTH.CON ---
History of Present Illness *Admission Date: 01/05/22 *History of present illness: Mr. Khan is a 66-year-old male with a past medical history of Seizure Disorder, Depression, Anxiety, Protein Calorie Malnutrition and Failure to thrive. He lives at a nursing home and presented to the ER due to a fall at ground level at the facility. In the ER he had multiple imaging studies including a CT of the head, CT cervical spine, CT pelvis and xrays of the lower extremities. Imaging findings showed a mildly communited and impacted fracture at the left femoral head neck junction. The ER spoke with Orthopaedics surgeon who recommended evaluation. The patient was seen in the ER and was complaining of pain at the left hip site. He denies losing consciousness with the fall or any loss of bowel or bladder. The patient will be admitted with initial impression:. He will be given analgesics and Orthopaedics will be consulted to see the patient. The plan of care was discussed at bedside with the patient on admission. The patient verbalized understanding and agreement with the plan of care. [facility] Medical History Depression History of fall Protein calorie malnutrition Seizure disorder Social History Smoking Status: Current every day smoker tobacco type: cigarettes packs per day: 1 alcohol intake: never current occupational status: disabled Travel in the last 8 weeks: None housing: assisted living facility caffeine: Yes Review of Systems Constitutional Constitutional: Reports frequent falls *Neurologic Neurologic: Reports system reviewed and no additional complaints, except as documented and Reports frequent falls Meds Home Medications and Allergies Home Medications Medication Instructions Recorded Confirmed Type Lactobacillus acidoph-L.bulgaricus 1 tab PO DAILY supplement 01/18/18 01/05/22 History 1 million cell chewable tablet carvedilol 3.125 mg tablet 3.125 mg PO BID High blood pressure 01/18/18 01/05/22 History famotidine 20 mg tablet 20 mg PO DAILY acid control 01/18/18 01/05/22 History folic acid 1 mg tablet 1 mg PO DAILY Supplement 01/18/18 01/05/22 History ibuprofen 600 mg tablet 600 mg PO QID PRN pain 01/18/18 01/05/22 History levetiracetam 750 mg tablet 750 mg PO BID seizures 01/18/18 01/05/22 History melatonin 5 mg capsule 5 mg PO HS Insomnia 01/18/18 01/05/22 History oxcarbazepine 600 mg tablet 600 mg PO BID seizures 01/18/18 01/05/22 History sennosides 8.6 mg tablet (senna) 8.6 mg PO BID PRN Constipation 01/18/18 01/05/22 History trazodone 50 mg tablet 50 mg PO DAILY sleep 01/18/18 01/05/22 History amlodipine 10 mg tablet 1 tab PO HS High blood pressure 08/19/21 01/05/22 History lisinopril 40 mg tablet 40 mg PO DAILY High blood pressure 08/20/21 01/05/22 History sertraline 100 mg tablet 100 mg PO DAILY Depression 08/20/21 01/05/22 History New Prescriptions to Start Prescriptions: Allergies Allergy/AdvReac Type Severity Reaction Status Date / Time No Known Allergies Allergy Verified 12/19/19 10:14 Ortho Exam (Inpt) Vital signs and Labs for Last 24 Hours: Temp Pulse Resp BP Pulse Ox 99.1 F 100 H 17 175/96 H 96 01/06/22 07:53 01/06/22 07:53 01/06/22 07:53 01/06/22 07:53 01/06/22 07:53 Laboratory Results - last 24 hr 01/05/22 20:32: SARS-CoV-2 (PCR) Not detected, Influenza A Untype (PCR) Not detected, Influenza Type B (PCR) Not detected 01/05/22 20:39: WBC 13.3 H, RBC 4.84, Hgb 15.2, Hct 45.5, MCV 93.9, MCH 31.3 H, MCHC 33.3, RDW 14.4, Plt Count 334, MPV 7.5, Neut % (Auto) 87.5 H, Lymph % (Auto) 5.9 L, [place] % (Auto) 6.0, Eos % (Auto) 0.3, Baso % (Auto) 0.2, Neut # (Auto) 11.6 H, Lymph # (Auto) 0.8, [place] # (Auto) 0.8, Eos # (Auto) 0.1, Baso # (Auto) 0.0, Total Counted 100, Neutrophils % (Manual) 94 H, Lymphocytes % (Manual) 4 L, Monocytes % (Manual) 2, Platelet Estimate Normal, RBC
--- NOTE | 2022-01-06 09:12 | HMH.PHAINT1 ---
Pharmacy Intervention Comments: home medication list verified using list from outpatient pharmacy
[2022-01-06 09:42] LABS: Lymphocytes % 9 % (10-50); Monocytes % 10 % (2-9); Neutrophils % 81 % (42-76); Platelet Estimate Normal; RBC Morphology Normal; Total Cells Counted 100
--- NOTE | 2022-01-06 10:22 | SW/DCPLANNER ---
Addendum entered by Yane Mosley 01/07/22 10:28: I have updated patient's Guardian (Bere) that the plan is to discharge this patient to [facility] today. Addendum entered by Yane Mosley 01/07/22 09:43: Janeth Reyna has stated that she can accept this patient once medically stable for discharge. Patient will need a COVID swab prior to discharge. Addendum entered by Yane Mosley 01/06/22 10:26: Patient was discharged from [facility] within the past 48 hours. Janeth Reyna is interested in patient returning: patient information will be faxed and I will update Guardian. Original Note: This patient admitted from [facility] for a left hip fx. Patient will require surgical intervention per Ortho Consult. I will follow up with Mauro Nguyễn and patient's Guardian regarding placement at SNF at time of discharge. Discharge date is unknown at this time.
--- NOTE | 2022-01-06 15:30 | PC.NURSE ---
1407 Dr. Cotto notified of patient blood pressure after administration of morphine. Dr. Cotto stated he would call anesthesia and ask if they would like him to do any intervention before sending patient down to OR. OR nurses stated they would go ahead and take patient down and if they needed anything they would call or bring patient back to floor.
--- NOTE | 2022-01-06 15:38 | EXP.ANES.CKL ---
[facility] Medical History Depression History of fall Protein calorie malnutrition Seizure disorder Social History Smoking Status: Current every day smoker tobacco type: cigarettes packs per day: 1 alcohol intake: never substance use type: denies use current occupational status: disabled Travel in the last 8 weeks: None housing: assisted living facility caffeine: Yes [facility] Anesthesia Checklist Patient Identification Patient Identification: Arm Band and Verbal (Name & ) Structural Data Admitted From: Inpatient Planned Operative Procedure/s: L hi hemiarthroplasty Consent for Planned Operative Procedure(s) Verified: Yes NPO Status Verified Time NPO: 00:00 Airway Assessment C-Spine Mobility Assessed: Yes TMJ Mobility Assessed: Yes Dentition: Edentulous Neurological Assessment Level of Consciousness: Awake Hx Seizures: No Numbness or tingling in extremities: No Anesthesia Plan Anesthesia Risk discussed: Yes Anesthesia Plan: Verified ASA Class: III Anesthesia Type: MAC w/Spinal
--- NOTE | 2022-01-06 17:32 | EXP.OP.NOTE ---
Date of procedure: 01/06/22 Pre-op Diagnosis:: Left hip displaced femoral neck fracture Post-op Diagnosis:: Same Procedure performed:: Left hip hemiarthroplasty. Surgeon:: Nhan Recinos DO Engineer Technician(s):: Yo DE LA TORRE ELECTROPLATER APPRENTICE:: rEika Dickerson Anesthesia: spinal Estimated blood loss (mL): 100 Operative findings:: Displaced femoral neck fracture Operative note:: Patient was identified preoperatively left hip marked yes and my initials. Taken the operating room. Spinal anesthesia was administered. Patient was then placed supine on the operating bed. Then placed in a lateral position with all bony prominences well-padded axillary roll placed with a hip positioner. Left hip was positioned up. Left hip was then prepped and draped in normal sterile fashion. Once prepped and draped final operative timeout performed to identify proper patient procedure and extremity. Everyone involved the case agreed. No counter indications to beginning. Did receive preoperative antibiotics Marking pen was used to devi plan incision over the lateral aspect of the hip. Skin knife was used incise through skin dissection was taken down to the IT band was split in line with the femur. Charnley retractor was placed. Abductors identified. Standard abductor split was performed for a modified Hardinge approach. Abductors were placed anteriorly in the Charnley retractor for protection throughout the procedure. Hip capsule was exposed and opened in a T-type fashion. Cleanup of the femoral neck fracture was made with a saw. Leg was brought on the table and the femoral head was then removed from the acetabulum with the help of a corkscrew and Martinez elevator. Once removed the head was sized on the back table to a size 53. Copious irrigation was performed and cleanout of the acetabulum was performed. Leg was then brought anteriorly in the bag and femoral neck was exposed. Femoral neck elevator was placed. embroidery cutter was used for lateralization. Opening mica plate layer hand was used for canal finder. And subsequently broached from a size 8 to a size 12. Size 12 gave good fit and fill in the canal. Broach is removed copious irrigation with pulse lavage performed. A size 12 stem with collar was selected and opened on the back table. I then placed the size 12 stem into the canal proper placement. A standard bipolar head was selected and impacted into place. Soft tissue was retracted and closed reduction maneuver was performed with inline traction of the leg and internal rotation of the hip which reduced the hip into its joint. Copious irrigation of the wound repeated. Hip taken through range of motion with flexion extension internal and external rotation found to be very stable.. Capsule layer was repaired with 0 Vicryl stitch. Abductor repair was performed with #5 Ethibond suture. IT band was closed with a running #1 Quill suture. Deep layers with an 0 Vicryl subcutaneous with 2-0 Vicryl. Surgical clips in the skin for closure. Sterile hip dressing placed. Patient placed in abduction pillow waken anesthesia taken recovery in stable condition. Condition: stable Disposition: PACU Complications:: None apparent
--- NOTE | 2022-01-06 17:39 | EXP.ANES.I ---
[facility] Anesthesia Record Part I Anesthesia Record I Intake, IV Amount: 300 Estimated blood loss (mL): 100 Urine output (mL): 850 Blood Pressure: 89/54 SaO2: 94 Pulse Rate: 69 Respiratory Rate: 13 Temperature: 97.9 F Patient is:: Drowsy Stable to PACU at:: 17:37
--- NOTE | 2022-01-06 17:54 | XR_ITS ---
PROCEDURE INFORMATION: Exam: XR Left Hip Exam date and time: 01/06/2022 5:49 PM Age: 66 years old Clinical indication: Hip pain; Left hip; Prior surgery; Surgery date: Post-operative (0-2 days); Additional info: Md order TECHNIQUE: Imaging protocol: Radiologic exam of the Left hip. Views: 2 or 3 views hip with pelvis when performed. COMPARISON: CT BONY PELVIS 01/05/2022 8:19 PM FINDINGS: Bones/joints: Postoperative changes consistent with recent total left hip arthroplasty. Soft tissues: Surgical brennan demonstrated in the subcutaneous tissues. Other findings: Small scattered collections of air consistent with recent postoperative change demonstrated. IMPRESSION: Postoperative changes consistent with recent total left hip arthroplasty.
--- NOTE | 2022-01-06 17:57 | SUR.PHASEI ---
1755- radiology at bedside
--- NOTE | 2022-01-06 18:19 | SUR.PHASEI ---
1807- detailed report called to bertin haney on ob floor 1808- pt left with bertin haney in pt room. all bed rails up and bed in lowest position. All dressings CDI, francisco draining, and all vitals stable at this time. Hip abduction pillow in place.
--- NOTE | 2022-01-06 18:24 | PC.NURSE ---
Patient back to floor at 181. Patient alert to name and confused as before. VSS and patient remained on room air. No complaints of pain. Abductor pillow in place, dressing clean, dry, and intact.
[2022-01-06 19:11] LABS: Microscopic,Cath URINE MICROSCOPIC (MICROSCOPIC)
[2022-01-06 19:13] LABS: Appearance,Urine/Cath CLEAR (Clear); Bilirubin,Cath Negative (Negative); Blood, Urine/Cath TRACE-I (Negative); Color,Urine/Cath YELLOW (Yellow); Glucose,Urine/Cath (UA) Negative (Negative); Ketones,Urine/Cath Negative (Negative); Leukocyte Esterase,Cath Negative (Negative); Nitrate,Cath Negative (Negative); PH,Urine/Cath 6.5 (5.0-8.5); Protein,Urine/Cath TRACE (Negative); Urobilinogen,Cath 0.2 EU/dl (0.2)
[2022-01-06 19:32] LABS: Squamous Epithelial Ur./Cath Occasional #/hpf (0-5); WBC,Urine/Cath Occasional #/hpf (0-3)
[2022-01-07] VITALS: BP 99/61; PULSE 86; RESP 16; TEMP 36.5; O2SAT 96
[2022-01-07 04:00] VITALS: BP 136/74; PULSE 76; RESP 16; TEMP 37.1; O2SAT 97
[2022-01-07 04:32] VITALS: BMI 21.9
--- NOTE | 2022-01-07 06:04 | PC.NURSE ---
pt has rested off and on throughout shift, pt remains alert to person, pt c/o pain in left hip which was treated with prn medication and effective, dressing remains intact to left with abductor pillow in place, francisco cath patent and draining lacy urine, no distress noted, vss
--- NOTE | 2022-01-07 06:23 | PC.NURSE ---
[facility] who states ok to mix ancef 1g in 100ml of NS
[2022-01-07 07:06] LABS: Blood Urea Nitrogen 19 mg/dl (9-20); Calcium 8.7 mg/dl (8.4-10.2); Carbon Dioxide 22 mmol/L (22.0-30.0); Chloride 94 mmol/L (98-107); Creatinine Clearance Estimated 65 mL/min (50-200); Estimated Glomerular Filt Rate 136 ml/min (>60); GFR (African American) 164 ML/MIN (>60); Glucose 136 mg/dl (74-100); Sodium 127 mmol/L (136-145)
[2022-01-07 07:14] LABS: Basophils % 0.1 % (0.1-2.0); Eosinophils % 0.1 % (0.1-12.0); Hematocrit 33.8 % (42.0-52.0); Lymphocytes # 0.8 K/mm3 (0.7-4.5); Lymphocytes % 7.1 % (10-50); Mean Corpuscular HGB Conc 33.4 g/dL (31.8-35.4); Mean Corpuscular Hemoglobin 31.7 pg (27.0-31.2); Mean Corpuscular Volume 94.7 fl (80-94); Monocytes # 1.1 K/mm3 (0.1-1.0); Monocytes % 9.6 % (1.7-9.3); Neutrophils # 9.4 K/mm3 (1.8-7.8); Platelet Count 219 K/mm3 (142-424); Red Blood Count 3.57 M/mm3 (4.60-6.20); Red Cell Distribution Width 14.3 % (11.5-17.5); White Blood Count 11.3 K/mm3 (4.8-10.8)
[2022-01-07 08:00] VITALS: BP 138/77; PULSE 82; RESP 18; TEMP 37.4; O2SAT 95
[2022-01-07 08:37] LABS: Hemoglobin 11.3 g/dL (14.1-18.0)
--- NOTE | 2022-01-07 10:00 | HMH.OTEV ---
OT Inpatient Evaluation Rehab OT IP Evaluation Start: 01/07/22 07:56 Freq: ONCE Status: Complete Protocol: Document 01/07/22 09:55 MARIO (Rec[facility]07/22 10[id number] Re[facility] OT IP Assessment Subjective History Pt oriented x 2 on arrival. Pt agreeable to engage in therapy evaluation. Pt was admitted via ED on 01/05/22 due to a fall with left hip fx. Pt required a Left hip hemiarthroplasty on 01/06/22. Prior to being in the hosptial , [facility] Pt claims he was independent with dressing, bathing, and feeding. He was dependent on staff to complete IADLs. pt did use a walker during ambulation. Pt has a past medical history of: Depression History of fall Protein calorie malnutrition Seizure disorde Subjective I think I used a walker. Objective Patient Orientation Person,Birthday Upper Extremity Gross ROM WFL Bed Mobility bed mobility-scooting,bed mobility - supine/sit,bed mobility - rolling Assist Level Minimal x 1 (25% assist) Transfer Training Sit/Stand Transfer Assist Level Minimal x 1 (25% assist) Chair Transfer Ability Contact Guard/Hand Hold, Minimal x 1 (25% assist) Chair Transfer Technique Sit to/from Ambulatory Rehab OT IP prob,goals,plan Problems Date of Evaluation: 01/07/22 OT IP Problems Bed Mobility,Transfers,Balance ,Self care,Safety Rehab Potential Rehab Potential Good Equipment Needs Assistive Devices Rolling / Wheeled Walker Plan OT intervention Plan Bed Mobility,Transfers,Balance ,Self care,Safety,Therapeutic Exercise OT Plan Frequency BID Duration LOS Discharge Goals Bed Mobility Ability Standby Assistance Sit to Stand Chair Transfer Ability Contact Guard/Hand Hold Chair Transfer Ability Contact Guard/Hand Hold Chair Transfer Technique Sit to/from Ambulatory Chair Transfer Assistive Devices Rolling Walker F
--- NOTE | 2022-01-07 10:10 | HMH.PTEV ---
Physical Therapy Evaluation Rehab PT IP Evaluation Start: 01/06/22 17:50 Freq: ONCE Status: Active Protocol: Document 01/07/22 10:04 GARRISON (Rec: 01/07/22 10:10 GARRISON [id number]) Subjective/History History History This is the initial IP PT evaluation for Richy Connor. Pt is a 66 y/o male who [facility] a [facility] a [facility]. Pt had comminuted femur fx which required surgical intervention. Pt received L hemiarthroplasty yesterday. Subjective Subjective Pt reports c/o pain in L side low back - pt was also bruised on back - pt states he fell down the stairs at [facility] Rehab PT IP Eval Objective Appearance Patient Behavior Appropriate,Cooperative Patient Orientation Name,Birthday Difficulty following instructions mild Speech Pattern Appropriate,Delayed,Soft- Spoken Ambulation Patient Able to Ambulate Yes Ambulation Observation IP General Gait Pattern Observation Antalgic Gait Ambulation Distance (feet) 5 Ambulation Assistive Device None Ambulation Ability Contact Guard/Hand Hold, Minimal x 1 (25% assist) Balance Ability to Arise Able, uses arms to help Sitting Balance Steady, safe Standing Balance Unsteady Dynamic Sitting Balance Ability Fair Dynamic Standing Balance Ability Poor Transfers Bed Transfer Ability Contact Guard/Hand Hold, Minimal x 1 (25% assist) Chair Transfer Ability Contact Guard/Hand Hold, Minimal x 1 (25% assist) Sit to Stand Bed Transfer Ability Contact Guard/Hand Hold, Minimal x 1 (25% assist) Sit to Stand Chair Transfer Ability Contact Guard/Hand Hold, Minimal x 1 (25% assist) Rehab PT IP prob,goals,plan Problems Date of Evaluation: 01/07/22 PT IP Problems Transfers,Gait,Balance,Self care,Safety Rehab Potential Rehab Potential Good Equipment Needs Assistive Devices Rolling / Wheeled Walker Plan PT Intervention Plan Bed Mobility,Transfers,Gait, Balance,Self care,Safety, Therapeutic Exercise,Other PT Plan Frequency BID Duration LOS Discharge Goals Bed Transfer Ability Contact Gua
--- NOTE | 2022-01-07 10:18 | EXP.DC.SUM ---
General Admission date:: 01/05/22 HPI HPI HPI: Mr. Khan is a 66-year-old male with a past medical history of Seizure Disorder, Depression, Anxiety, Protein Calorie Malnutrition and Failure to thrive. [facility] lives at a intermediate and presented to the ER due to a fall at ground level at the facility. In the ER he had multiple imaging studies including a CT of the head, CT cervical spine, CT pelvis and xrays of the lower extremities. Imaging findings showed a mildly communited and impacted fracture at the left femoral head neck junction. The ER spoke with Orthopaedics surgeon who recommended evaluation. The patient was seen in the ER and was complaining of pain at the left hip site. He denies losing consciousness with the fall or any loss of bowel or bladder. The patient will be admitted with initial impression:. He will be given analgesics and Orthopaedics will be consulted to see the patient. The plan of care was discussed at bedside with the patient on admission. The patient verbalized understanding and agreement with the plan of care. Hospital Course Hospital Course Hospital Course: 66-year-old male who is a resident of a intermediate presents due to ground level fall at the facility, found to have a closed intertrochanteric fracture of the left femur. Orthopedics consulted, left hemiarthroplasty performed. Patient is weightbearing as tolerated. Medically stable for discharge to retirement facility for rehab. Problems addressed during hospitalization as follows: Left Closed Intertrochanteric Fracture of Left Femur - Orthopedics consulted, left hemiarthroplasty performed 01/06. No complications during procedure. Tolerated well. Pain has been well managed with oral opiates. Electronic prescription sent at time of discharge to [facility] in [place]. Patient is weightbearing as tolerated. Discharge to [facility] for PT/OT. Hypertension -Elevated before surgery. Improved after surgery with better pain control. Continue regimen per home meds including amlodipine, carvedilol, lisinopril. Hyponatremia -Improving with IV fluid resuscitation. - Seizure Disorder Continued home medications per med - Protein Calorie Malnutrition, history BMI now 21 Dietary/nutrition consult. Will need supplementation on trays while at senior living Continue aspirin 325 twice daily for 1 month for DVT prophylaxis after surgery. Follow-up with orthopedics as scheduled. Exam Data for Last 24 hours Vital signs and Labs for Last 24 Hours: Temp Pulse Resp BP Pulse Ox 99.3 F 82 18 138/77 95 01/07/22 08:00 01/07/22 08:00 01/07/22 08:00 01/07/22 08:00 01/07/22 08:00 Laboratory Results - last 24 hr 01/06/22 15:08: Urine Color Yellow, Urine Appearance Clear, Urine pH 6.5, Ur Specific [place] 1.020, Urine Protein Trace, Urine Glucose (UA) Negative, Urine Ketones Negative, Urine Blood Trace-i, Urine Nitrate Negative, Urine Bilirubin Negative, Urine Urobilinogen 0.2, Ur Leukocyte Esterase Negative, Urine RBC None, Urine WBC Occasional, Ur Squamous Epith Cells Occasional, Urine Bacteria None 01/07/22 06:34: WBC 11.3 H, RBC 3.57 L, Hgb 11.3 L D, Hct 33.8 L, MCV 94.7 H, MCH 31.7 H, MCHC 33.4, RDW 14.3, Plt Count 219 D, MPV 8.0, Neut % (Auto) 83.0 H, Lymph % (Auto) 7.1 L, Carver % (Auto) 9.6 H, Eos % (Auto) 0.1, Baso % (Auto) 0.1, Neut # (Auto) 9.4 H, Lymph # (Auto) 0.8, Carver # (Auto) 1.1 H, Eos # (Auto) 0.0, Baso # (Auto) 0.0 01/07/22 06:34: Sodium 127 L, Potassium 4.0, Chloride 94 L, Carbon Dioxide 22, Anion Gap 15.0, BUN 19, Creatinine 0.60 L, Estimated Creat Clear 65, Estimated GFR 136, Est GFR ( Amer) 164, Glucose 136 H D, Calcium 8.7 I & O for Last 24 hours: Intake & Output 01/04/22 01/05/22 01/06/22 01/07/22 23:59 23:59 23:59 23:59 Intake Total 1100 / 1100 Output Total 0 / 400 400 / 400 Balance 1100 / 700 -400 / -400 Weight 58.967 kg 58.96 kg 61.915 kg Constitutional Constitutional: no acute distre
[2022-01-07 11:56] LABS: Coronavirus 19, PCR Not Detected (NotDetected); Influenza A, PCR Not Detected (NotDetected); Influenza B, PCR Not Detected (NotDetected)
[2022-01-07 12:00] VITALS: BP 116/68; PULSE 72; RESP 18; TEMP 36.9; O2SAT 96
--- NOTE | 2022-01-07 12:03 | EXP.ORTH.PN ---
Subjective *Date: 01/07/22 *Time: 12:03 Interval history: Patient sitting up and in bedside chair. No complaints. Overall doing well. Ortho Exam (Inpt) Vital signs and Labs for Last 24 Hours: Temp Pulse Resp BP Pulse Ox 99.3 F 82 18 138/77 95 01/07/22 08:00 01/07/22 08:00 01/07/22 08:00 01/07/22 08:00 01/07/22 08:00 Laboratory Results - last 24 hr 01/06/22 15:08: Urine Color Yellow, Urine Appearance Clear, Urine pH 6.5, Ur Specific [place] 1.020, Urine Protein Trace, Urine Glucose (UA) Negative, Urine Ketones Negative, Urine Blood Trace-i, Urine Nitrate Negative, Urine Bilirubin Negative, Urine Urobilinogen 0.2, Ur Leukocyte Esterase Negative, Urine RBC None, Urine WBC Occasional, Ur Squamous Epith Cells Occasional, Urine Bacteria None 01/07/22 06:34: WBC 11.3 H, RBC 3.57 L, Hgb 11.3 L D, Hct 33.8 L, MCV 94.7 H, MCH 31.7 H, MCHC 33.4, RDW 14.3, Plt Count 219 D, MPV 8.0, Neut % (Auto) 83.0 H, Lymph % (Auto) 7.1 L, Ness % (Auto) 9.6 H, Eos % (Auto) 0.1, Baso % (Auto) 0.1, Neut # (Auto) 9.4 H, Lymph # (Auto) 0.8, Ness # (Auto) 1.1 H, Eos # (Auto) 0.0, Baso # (Auto) 0.0 01/07/22 06:34: Sodium 127 L, Potassium 4.0, Chloride 94 L, Carbon Dioxide 22, Anion Gap 15.0, BUN 19, Creatinine 0.60 L, Estimated Creat Clear 65, Estimated GFR 136, Est GFR ( Amer) 164, Glucose 136 H D, Calcium 8.7 I & O for Labs for Last 24 Hours: Intake & Output 01/04/22 01/05/22 01/06/22 01/07/22 23:59 23:59 23:59 23:59 Intake Total 1100 / 1100 Output Total 0 / 400 725 / 725 Balance 1100 / 700 -725 / -725 Weight 130 lb 129 lb 15.753 oz 136 lb 8 oz Additional findings:: Left hip: Dressing in place no drainage wiggles toes grossly neurovascularly intact. Assessment and Plan *Assessment and plan (1) Left displaced femoral neck fracture: Problem details: Status post hemiarthroplasty left hip Status: Acute Category: Medical Code(s): S72.002A - Fracture of unspecified part of neck of left femur, initial encounter for closed fracture Plan Patient evaluated physical therapy today. Appropriate candidate for rehabilitation. Transfer to rehabilitation when bed available. Follow-up in Ortho clinic in 2 weeks for staple removal. Weightbearing as tolerated with walker
--- NOTE | 2022-01-07 13:23 | EXP.ANES.II ---
[facility] Anesthesia Record Part II Anesthesia Record Part II Discharge Time: 18:08 Destination: Surgical Day Care (OP Surgery) PACU nurse assessment reviewed?: Yes Patient Condition:: Good Anesthesia Complications:: None Swallowing reflex intact?: Yes Cyanosis?: No Blood Pressure: 125/61 Pulse Rate: 80 Temperature: 97.9 F Mental Status: Alert & Oriented Pain level:: 0 Nausea and/or vomitting:: None Intake, IV Amount: 0
[2022-01-07 13:24] VITALS: BP 125/61; PULSE 80; TEMP 36.6
--- NOTE | 2022-01-10 11:41 | CARE MANAGER ---
Contacted [facility] and spoke with nurse. Patient is doing well. Deny any quesitons or concerns. CÉSAR George
[2022-01-10 18:11] LABS: Levetiracetam (Keppra) 15.1 ug/mL (10.0-40.0)
== END 2022-01-07 13:50 | DRG 522 ==
LOC: ER 20:31 → 2ND 21:47
PROVIDERS: Nurse Practitioner Family; Orthopaedic Surgery; Admitting Provider Internal Medicine Adolescent Medicine; Emergency Provider Emergency Medicine; PCP Emergency Medicine; Visit Provider Internal Medicine Adolescent Medicine
PROC: 0SRS0JA Replacement of Left Hip Joint, Femoral Surface with Synthetic Substitute, Uncemented, Open Approach (ICD-10-PCS; principal; 2022-01-06 14:00)
DX: E87.1 Hypo-osmolality and hyponatremia; E44.1 Mild protein-calorie malnutrition; I10 Essential (primary) hypertension; Z68.20 Body mass index [BMI] 20.0-20.9, adult; G40.909 Epilepsy, unspecified, not intractable, without status epilepticus; S72.002A Fracture of unspecified part of neck of left femur, initial encounter for closed fracture; W01.0XXA Fall on same level from slipping, tripping and stumbling without subsequent striking against object, initial encounter; Z91.81 History of falling; F17.210 Nicotine dependence, cigarettes, uncomplicated
CPT/HCPCS: 27236; 36415; 70450; 71046; 72125; 72192; 73502; 73552; 73560; 80048; 80053; 80177; 81001; 85007; 85025; 85610; 97162; 97166; 97530; 99285; C1776; C9803; J2704; U0003; U0005

== ENCOUNTER → 2022-01-20 14:03 | Outpatient (CLI) | payer MEDICAID, SELFPAY ==
--- NOTE | 2022-01-20 14:11 | XR_ITS ---
FINAL REPORT CLINICAL HISTORY: lt hip pain, recent surgery COMPARISON: 01/06/2022 FINDINGS: Left hip Three views were obtained. There is no acute fracture or dislocation. The patient is status post total hip prosthesis. Overlying skin brennan are identified. The presumed subcutaneous emphysema has essentially resolved. IMPRESSION: Postsurgical changes as above. Reviewed, Interpreted and Dictated by Tai Hedrick MD Transcribed by Luh Vanegas Authenticated and [facility]
== END ==
PROVIDERS: PCP Emergency Medicine; Visit Provider Orthopaedic Surgery
DX: M25.552 Pain in left hip (principal); S72.002A Fracture of unspecified part of neck of left femur, initial encounter for closed fracture
CPT/HCPCS: 73502

== ENCOUNTER 2022-01-21 23:39 | Emergency (ER) | payer MEDICAID, SELFPAY ==
[2022-01-21 23:39] VITALS: BP 186/81; PULSE 85; RESP 16; TEMP 36.9; O2SAT 100; BMI 20.6
--- NOTE | 2022-01-21 23:51 | XR_ITS ---
PROCEDURE INFORMATION: Exam: XR Chest Exam date and time: 01/22/2022 12:01 AM Age: 66 years old Clinical indication: Injury or trauma; Fall; Sprain or strain TECHNIQUE: Imaging protocol: Radiologic exam of the chest. Views: 1 view. COMPARISON: CR XR CHEST 2V 01/05/2022 7:43 PM FINDINGS: Lungs: Subtle interstitial haziness could reflect interstitial pneumonia. No consolidation. Pleural spaces: Unremarkable. No pleural effusion. No pneumothorax. Heart/Mediastinum: Unremarkable. No cardiomegaly. Bones/joints: Unremarkable. IMPRESSION: Subtle interstitial haziness could reflect interstitial pneumonia.
--- NOTE | 2022-01-21 23:51 | CT_ITS ---
PROCEDURE INFORMATION: Exam: CT Cervical Spine Without Contrast Exam date and time: 01/22/2022 12:27 AM Age: 66 years old Clinical indication: Injury or trauma; Fall TECHNIQUE: Imaging protocol: Computed tomography of the cervical spine without contrast. Radiation optimization: All CT scans at this facility use at least one of these dose optimization techniques: automated exposure control; mA and/or kV adjustment per patient size (includes targeted exams where dose is matched to clinical indication); or iterative reconstruction. COMPARISON: CT CERVICAL SPINE WO CON 01/05/2022 8:12 PM FINDINGS: Bones/joints: No acute fracture. Mild anterolisthesis 1.4 mm C4 on C5. No significant disc protrusion. No severe spinal canal stenosis. Severe left facet joint arthropathy at C4 and C5. Lungs: Lung apices are normal. Soft tissues: Unremarkable. IMPRESSION: No acute findings.
--- NOTE | 2022-01-21 23:51 | CT_ITS ---
PROCEDURE INFORMATION: Exam: CT Head Without Contrast Exam date and time: 01/22/2022 12:21 AM Age: 66 years old Clinical indication: Injury or trauma; Fall TECHNIQUE: Imaging protocol: Computed tomography of the head without contrast. Radiation optimization: All CT scans at this facility use at least one of these dose optimization techniques: automated exposure control; mA and/or kV adjustment per patient size (includes targeted exams where dose is matched to clinical indication); or iterative reconstruction. COMPARISON: CT HEAD/BRAIN WO CON 01/05/2022 8:12 PM FINDINGS: Brain: Moderate to severe atrophy and chronic small vessel ischemic changes. 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 No hemorrhage. No mass effect or midline shift. Cerebral ventricles: No ventriculomegaly. Paranasal sinuses: Visualized sinuses are unremarkable. No fluid levels. Mastoid air cells: Visualized mastoid air cells are well aerated. Bones/joints: Previous right-sided craniotomy. Soft tissues: Unremarkable. Vasculature: Previous right MCA coiling. IMPRESSION: Chronic and postsurgical changes but no acute findings in the brain.
--- NOTE | 2022-01-21 23:51 | XR_ITS ---
PROCEDURE INFORMATION: Exam: XR Left Hip Exam date and time: 01/21/2022 11:59 PM Age: 66 years old Clinical indication: Injury or trauma; Fall; Sprain or strain; Pelvic region; Prior surgery; Surgery date: 1-6 months; Surgery type: Left hip replacement TECHNIQUE: Imaging protocol: Radiologic exam of the Left hip. Views: 2 or 3 views hip with pelvis when performed. COMPARISON: CR XR HIP LT 2-3V W/PELVIS 01/20/2022 2:12 PM FINDINGS: Bones/joints: Total left hip arthroplasty device in place. Normal alignment. No hardware complication. No acute fracture. Soft tissues: Unremarkable. IMPRESSION: No acute findings.
[2022-01-22] VITALS: BP 181/85; PULSE 64; O2SAT 100
--- NOTE | 2022-01-22 00:15 | HMH.EDFALL ---
Discharge Plan Disposition Patient Disposition: Xfer [facility] Chief Complaint: Fall Prescriptions Prescriptions: No Action carvedilol 3.125 mg tablet 3.125 mg PO BID famotidine 20 mg tablet 20 mg PO HS Lactobacillus acidoph-L.bulgar 1 million cell tablet,chewable 1 tab PO DAILY folic acid 1 mg tablet 1 mg PO DAILY levetiracetam 750 mg tablet 750 mg PO BID melatonin 5 mg capsule 5 mg PO HS oxcarbazepine 600 mg tablet 600 mg PO BID sennosides [senna] 8.6 mg tablet 8.6 mg PO BID PRN (Reason: Constipation) trazodone 50 mg tablet 50 mg PO DAILY oxycodone-acetaminophen 5-325 mg tablet 1 tab PO Q6H PRN (Reason: pain) 3 Days Qty: 12 0RF amlodipine 10 MG tablet 10 mg PO DAILY sertraline 100 MG tablet 100 mg PO DAILY lisinopril 40 MG tablet 40 mg PO DAILY aspirin 325 mg Tablet 325 mg PO BID 30 Days Qty: 0 0RF Referrals Follow up/Referrals: Provider,Referral, MD [Primary Care Provider] - See instructions Clinical Impressions Clinical Impression: Fall, Contusion of hip, left Instructions Patient Instructions: How to Prevent Falls Discharge ED Provider: Otilio King Fall HPI General Chief Complaint: Fall Stated Complaint: hip pain fall Time Seen by Provider: 01/22/22 00:15 Mode of Arrival: EMS Source of Information: Patient, EMS and Medical Record Limitations: No Limitations Description of Symptoms (Recalled from ER Triage Doc. by RN): pt arrived EMS from group home there was an unwitnessed fall the pt stated that he was getting up and fell and he was not in alot of pain just sore. pt just had a left hip fracture repain oprox 2 weeks ago and the group home was concerned about a re-injury History of Present Illness HPI Narrative: fell at [facility] with head and hip dru SAN complaint: fall Onset (ago): hour(s) Fall from: out of bed Fall witnessed: no Place fall occurred: group home/SNF Loss of consciousness: none Prolonged down time: no Symptoms prior to fall: none Context: tripped/slipped and history of frequent falls Location of injury: neck and back Severity: moderate Related Data Home Medications Medication Instructions Recorded Confirmed Lactobacillus acidoph-L.bulgaricus 1 tab PO DAILY supplement 01/18/18 01/20/22 1 million cell chewable tablet carvedilol 3.125 mg tablet 3.125 mg PO BID High blood pressure 01/18/18 01/20/22 famotidine 20 mg tablet 20 mg PO HS acid control 01/18/18 01/20/22 folic acid 1 mg tablet 1 mg PO DAILY Supplement 01/18/18 01/20/22 levetiracetam 750 mg tablet 750 mg PO BID seizures 01/18/18 01/20/22 melatonin 5 mg capsule 5 mg PO HS Insomnia 01/18/18 01/20/22 oxcarbazepine 600 mg tablet 600 mg PO BID seizures 01/18/18 01/20/22 sennosides 8.6 mg tablet (senna) 8.6 mg PO BID PRN Constipation 01/18/18 01/20/22 trazodone 50 mg tablet 50 mg PO DAILY sleep 01/18/18 01/20/22 amlodipine 10 mg tablet 10 mg PO DAILY High blood pressure 08/19/21 01/20/22 lisinopril 40 mg tablet 40 mg PO DAILY High blood pressure 08/20/21 01/20/22 sertraline 100 mg tablet 100 mg PO DAILY Depression 08/20/21 01/20/22 Previous Rx's Medication Instructions Recorded aspirin 325 mg tablet 325 mg PO BID 30 days #0 tabs 01/07/22 oxycodone-acetaminophen 5 mg-325 1 tab PO Q6H PRN pain 3 days #12 01/21/22 mg tablet tabs Allergies Allergy/AdvReac Type Severity Reaction Status Date / Time No Known Allergies Allergy Verified 01/20/22 15:16 PFSH PFS Medical History Depression History of fall Protein calorie malnutrition Seizure disorder Social History Smoking Status: Former smoker alcohol intake: never substance use type: denies use current occupational status: disabled Travel in the last 8 weeks: None housing: assisted living facility caffeine: Yes ROS Obtained: Yes All sys
[2022-01-22 00:33] VITALS: BP 143/70; PULSE 66; O2SAT 100
--- NOTE | 2022-01-22 01:32 | PC.NURSE ---
report called to [facility]
[2022-01-22 02:26] VITALS: BP 143/70; PULSE 66; RESP 18; TEMP 36.8; O2SAT 100
== END 2022-01-22 02:30 ==
PROVIDERS: Emergency Provider Emergency Medicine
DX: S70.02XA Contusion of left hip, initial encounter (principal); W18.30XA Fall on same level, unspecified, initial encounter; Y92.129 Unspecified place in nursing home as the place of occurrence of the external cause; Z79.899 Other long term (current) drug therapy; Z91.81 History of falling; Z87.891 Personal history of nicotine dependence; F32.A Depression, unspecified; I10 Essential (primary) hypertension
CPT/HCPCS: 70450; 71045; 72125; 73502; 99285

== ENCOUNTER → 2022-03-01 12:50 | Outpatient (CLI) | payer MEDICAID, SELFPAY ==
--- NOTE | 2022-03-01 12:55 | XR_ITS ---
FINAL REPORT CLINICAL HISTORY: s/p hip surgery COMPARISON: 01/11/2022 FINDINGS: LEFT HIP Two views of the left hip including an AP pelvis demonstrate no acute fracture or dislocation. There are postoperative changes from left hip arthroplasty. The visualized bony structures are well aligned. There are mild vascular calcifications. IMPRESSION: No acute bony abnormality. Reviewed, Interpreted and Dictated by Donavan Marroquin III, MD Transcribed by Marguerite Roblero Authenticated and [facility]
== END ==
PROVIDERS: PCP Emergency Medicine; Visit Provider Orthopaedic Surgery
DX: M25.552 Pain in left hip (principal); Z98.890 Other specified postprocedural states
CPT/HCPCS: 73502

== ENCOUNTER → 2022-03-03 14:32 | Outpatient (CLI) | payer MEDICAID, SELFPAY ==
[2022-03-03 15:20] LABS: Basophils # 0.1 K/mm3 (0-0.2); Basophils % 1.1 % (0.1-2.0); Eosinophils # 0.2 K/mm3 (0.0-0.4); Eosinophils % 3.5 % (0.1-12.0); Hemoglobin 12.8 g/dL (14.1-18.0); Lymphocytes # 0.8 K/mm3 (0.7-4.5); Lymphocytes % 14.9 % (10-50); Mean Corpuscular HGB Conc 32.8 g/dL (31.8-35.4); Mean Corpuscular Hemoglobin 29.3 pg (27.0-31.2); Mean Corpuscular Volume 89.4 fl (80-94); Mean Platelet Volume 7.2 fl (7.4-10.4); Monocytes # 0.5 K/mm3 (0.1-1.0); Monocytes % 9.4 % (1.7-9.3); Neutrophils % 71.2 % (37.0-80.0); Platelet Count 280 K/mm3 (142-424); Red Blood Count 4.36 M/mm3 (4.60-6.20); Red Cell Distribution Width 14.8 % (11.5-17.5); White Blood Count 5.6 K/mm3 (4.8-10.8)
[2022-03-03 15:54] LABS: Alanine Aminotransferase 17 U/L (12-78); Albumin Level 4.4 g/dl (3.5-5.0); Alkaline Phosphatase 133 U/L (38-126); Anion Gap 12.9 mEq/L (5-15); Aspartate Amino Transferase 22 U/L (17-59); Bilirubin,Direct 0.2 mg/dl (0.0-0.4); Bilirubin,Indirect 0.1 mg/dL (0.0-0.9); Bilirubin,Total 0.3 mg/dl (0.2-1.3); Bilirubin,Unconjugated 0.1 mg/dL (0.0-1.1); Blood Urea Nitrogen 13 mg/dl (9-20); Carbon Dioxide 25 mmol/L (22.0-30.0); Chloride 93 mmol/L (98-107); Chol/HDL Ratio 4.6 (1-3.5); Cholesterol 217 mg/dl (140-200); Estimated Glomerular Filt Rate 114 ml/min (>60); GFR (African American) 137 ML/MIN (>60); Glucose 87 mg/dl (74-100); HDL Cholesterol 47 mg/dl (40-60); Magnesium 1.8 mg/dl (1.6-2.3); Potassium 4.9 mmoL/L (3.5-5.1); Sodium 126 mmol/L (136-145); Total Protein,Serum 7.3 g/dl (6.3-8.2); Triglycerides 136 mg/dl (30-150); VLDL Cholesterol 27 mg/dL (0-40)
[2022-03-03 16:05] LABS: Direct LDL Cholesterol 137.18 mg/dL (100-129)
[2022-03-03 16:10] LABS: Free T4 (Free Thyroxine) 0.55 ng/dl (0.78-2.19)
[2022-03-03 16:24] LABS: Thyroid Stimulating Hormone 0.66 uIU/mL (0.465-4.68)
== END ==
PROVIDERS: PCP Emergency Medicine; Visit Provider Nurse Practitioner
DX: I10 Essential (primary) hypertension (principal); R68.89 Other general symptoms and signs; S91.302A Unspecified open wound, left foot, initial encounter; S91.309A Unspecified open wound, unspecified foot, initial encounter
CPT/HCPCS: 36415; 80048; 80061; 80076; 83735; 84439; 84443; 85025

== ENCOUNTER 2022-03-09 07:36 | Day surgery (SDC) | payer MEDICAID, SELFPAY ==
[2022-03-09] VITALS (18 sets, daily range): BP systolic 145–216; BP diastolic 41–122; PULSE 55–76; RESP 13–22; O2SAT 95–97; BMI 18.5
--- NOTE | 2022-03-09 07:00 | IR_ITS ---
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 COMPLICATIONS None Estimated Blood Loss: Less than 10 mls TECHNIQUE 1% lidocaine used anesthetize the right groin the right femoral artery was accessed via the sounder technique and a 5 Irish sheath was placed in the right femoral artery. The wire would not traverse the right common iliac artery therefore retrograde angiography was performed. After high-grade stenosis was identified in the right common femoral artery therapeutic heparin was administered giving a therapeutic ACT and the 5 Irish sheath was exchanged for a 6 Irish sheath. A long advantage wire was used to traverse the severe stenosis in the right common iliac artery. An 8 mm x 57 mm EV 3 stent was deployed at 12 tate reducing the severe stenosis to 0%. Following this a pigtail catheter was advanced to the abdominal aorta and abdominal aortography was performed following by repositioning of the catheter with bilateral iliofemoral runoff. Following this the advantage wire was then placed into the left common external and left superficial femoral artery traversing the stenosis. The short 6 Irish sheath was exchanged for a 45 cm destination sheath. An 8 mm x 60 mm self-expanding stent was then deployed at the distal end of the left external iliac artery. A 7 mm x 40 mm balloon was then deployed at 14 tate to post dilate. Residual stenosis was identified therefore an additional 8 mm x 40 mm self-expanding stent was then placed proximal to the for stent yet still overlapping and deployed. The balloon was then advanced and a 7 mm balloon was deployed at 15 tate to post dilate. Excellent angiographic results were obtained. At the end the procedure the apparatus was removed the groin was reprepped closure change sheath was removed good hemostasis was achieved using Perclose device patient was transferred to the postop putting in stable condition ANGIOGRAPHIC RESULTS Suprarenal abdominal aorta is widely patent. The mesenteric arteries and renal arteries are singular and normal. There is atheromatous plaque in the infrarenal abdominal aorta with no stenosis greater than 10 to 20%. Right common iliac artery has a long 80 to 90% stenosis. The right external iliac artery is mildly atheromatous as is the right common femoral artery. The right profunda femoris artery is patent. The right superficial femoral artery has diffuse and severe 50 and 90% stenosis throughout the proximal and midportion of the SFA. 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 There is additional 90% stenosis in the popliteal artery. Below the knee on the right side there is two-vessel runoff from the anterior tibialis artery and the peroneal artery however both arteries are small in caliber and have severe diffuse disease. There appears to be two-vessel runoff into the ankle from the anterior tibialis artery and then there is distal reconstitution of the posterior tibialis artery from collaterals mostly from the anterior tibialis artery. The peroneal artery appears
[2022-03-09 11:47] LABS: CATHL Activated Clotting Time 353 SEC (74-125)
== END 2022-03-09 14:34 | disposition home or self-care (01) ==
PROVIDERS: PCP Emergency Medicine; Visit Provider Internal Medicine
DX: I70.244 Atherosclerosis of native arteries of left leg with ulceration of heel and midfoot (principal); I70.211 Atherosclerosis of native arteries of extremities with intermittent claudication, right leg; I77.1 Stricture of artery; I10 Essential (primary) hypertension; E43 Unspecified severe protein-calorie malnutrition; Z68.1 Body mass index [BMI] 19.9 or less, adult; L97.421 Non-pressure chronic ulcer of left heel and midfoot limited to breakdown of skin
CPT/HCPCS: 37221; 75625; 75716; 85347; 99152; 99153; C1725; C1760; C1766; C1769; C1876; C1894; J1644; Q9967